=== PATIENT | female | born 1960 | race Caucasian/White ===

== ENCOUNTER → 2017-04-08 | Day surgery (SDC) | payer OTHER ==
[2017-04-02 09:50] VITALS: Ht 167.6 cm; Wt 97.7 kg
[~2017-04-08] VITALS: Ht 167.6 cm; Wt 97.7 kg
[~2017-04-08] MED LIST: 500ML BSS 0.3ML EPI 1:1000PF IRRIG ONE; ACETAMINOPHEN 325 MG TAB PO PRN; AMVISC PLUS 0.8ML SYRINGE INT OCU ONE; ASPCH81X PO; ATOR-24 PO; ATROPINE SULFATE 0.1 MG/ML 5ML SYR IV PRN; BSS FLUSH ONE; CALC-20 PO; CLB/200 PO; COLC0.6T54 PO; ENDOCOAT 0.85ML SYRINGE INT OCU ONE; EpHEDrine SULFATE INJ 50 MG/ML AMP IV PRN; EpINEphrine INJ 1MG/ML AMP 1 MG/ML AMP ONE; FERR1TAB13 PO; GABA-1220 PO; GLIP5TAB11 PO; GLIP5TAB3 PO; INSDGI SC; LACTATED RINGER'S 1000ML 500 ML IV SCH; LIDOCAINE 4% OP SOLN DROP CHARGE ONE; LIDOCAINE 4% OP SOLN DROP CHARGE OPL SCH; LIDOCAINE HCL 1% MPF 2 ML VIAL ONE; LISI40TA PO; METF-384 PO; MIDAZOLAM HCL 1 MG/ML 2ML VIAL ONE; MISCCAP80 PO; MIX: 4ML BSS 1ML EPI 1:1000 PF TOP ONE; MOXIFLOXACIN OPH SOLN PER DROP CHARGE ONE; MULTTAB58 PO; PANT40TA PO; POVIDONE-IODINE OP SOLN 30 ML BTL ONE; PROPARACAINE 0.5% OP SOLN PER DROP CHARGE OPL SCH; SITA100T3 PO; TOBRAMYCIN/DEXAMETHASONE OPH OINT PER APPLN CHARGE ONE; TRAM-10 PO; TRIA37.5 PO
--- NOTE | 2017-04-08 06:37 | History & Physical Bridge - [place] ---
H&P Re-Evaluation Bridge Note: I have examined the patient, reviewed the History & Physical and in the interval since the performance of the History & Physical I have noted the following changes of clinical significance: No changes noted
[2017-04-08] MEDS: PHENYLEPHRINE HCL 2.5% OP SOLN PER DROP CHARGE OPL SCH ×3 (06:44→06:54)
[2017-04-08] MEDS: TROPICAMIDE 1% OP SOLN PER DROP CHARGE OPL SCH ×3 (06:45→06:55)
[2017-04-08] MEDS: CYCLOPENTOLATE HCL 1% OP SOLN PER DROP CHARGE OPL SCH ×3 (06:46→06:56)
[2017-04-08] MEDS: MOXIFLOXACIN OPH SOLN PER DROP CHARGE OPL SCH ×3 (06:47→06:57)
--- NOTE | 2017-04-08 07:31 | [facility] Post Operative Brief Note ---
Immediate Operative Summary Operative Date Apr 08, 2017. Pre-Operative Diagnosis Left Eye Cataract Post-Operative Diagnosis Same Procedure(s) Performed Left Eye Cataract Phacoemulsification With Intraocular Lens Implant Surgeon Dr. Hansen Merchandise Planning Manager Surgeon(s) None Estimated Blood Loss None Findings Consistent with Post-Op Diagnosis Specimens None Anesthesia Type MAC Complication(s) none Disposition Accompanied Pt To Recovery: no Disposition:
--- NOTE | 2017-04-08 07:32 | [facility] Operative Report ---
Operative Report Date of Service Apr 08, 2017. Operative Report DATE OF OPERATION: 04/08/17 PREOPERATIVE DIAGNOSIS: Senile nuclear cataract, left eye POSTOPERATIVE DIAGNOSIS: Senile nuclear cataract, left eye PROCEDURE PERFORMED: Phacoemulsification with intraocular lens implantation, left eye SURGEON: Dr. Markie Hansen ANESTHESIA: Topical with 1% intracameral lidocaine and monitored anesthesia care COMPLICATIONS: None DESCRIPTION OF PROCEDURE: After positively identifying the patient both verbally and by wristband in the preoperative area, the left eye was marked as the operative eye. The patient was then brought back to the operating room by the anesthesia and nursing staff where they were given a drop of Lidocaine and betadine into the operative eye. They were then sterilely prepped and draped in the standard fashion typical for ophthalmic surgery. Steri-strips were placed along the upper eyelids to keep the lashes back, and a lid speculum was placed into the operative eye. At this point, a documented time out was performed with members of the ophthalmology, nursing, and anesthesia staffs all agreeing upon the correct patient, correct location for surgery, correct procedure, and correct type and power of intraocular lens to be implanted. The microscope was then swung into position. First, a paracentesis wound was made using a sideport blade. Then, in sequence, 1% preservative-free lidocaine followed by Endocoat viscoelastic was injected into the anterior chamber. Next , the main incision was made with a keratome blade in triplanar fashion. A sharp cystotome was introduced into the eye and used to create a tear in the anterior capsule, which was directed into a continuous curvilinear capsulorrhexis using Utrata forceps. Hydrodissection was then performed with BSS on a flat-tip cannula. Next, the phacoemulsification handpiece was introduced into the eye and used to remove the nucleus in a aulcyp-tzf-hayodms fashion. This was done without complication and then the irrigation-aspiration handpiece was introduced into the eye and used to remove all remaining cortical and epinuclear material. Amvisc was then injected into the anterior chamber as well as into the capsular bag and using the lens injector system, an MX60 22.0 D lens, serial number [id number], and expiration date 10/2019 was injected into the capsular bag and rotated into the correct position. Next, the irrigation- aspiration handpiece was used to remove all remaining Amvisc. BSS was used to hydrate the main wound, and then BSS was injected into the paracentesis site to reach physiologic pressure and then the main wound was checked and found to be watertight. The patient was given drops of Vigamox and Tobradex ointment into the operative eye, and then the surrounding area was cleaned and dried. A clear plastic shield was placed over the eye and the patient was then sat up and taken from the operating room by the anesthesia staff having tolerated the procedure well and suffering no complications. DISPOSITION: The patient was returned to the recovery room in stable condition. I attest to the content of the Intraoperative Record and any orders documented therein. Any exceptions are noted below.
--- NOTE | 2017-04-08 07:33 | Discharge Instructions-SurgCtr ---
Discharge Instructions Date of Service Apr 08, 2017. Visit Reason for Visit: Cataract Left Eye Discharge Discharge Diagnosis / Problem: left cataract Discharge Goals Goal(s): Decrease discomfort, Improve function Medications Stopped Medications Name(s): metformin stopped 2 days ago Activity Recommendations Activity Limitations: as noted below Anesthesia . Post Anesthesia Instructions: If you have had General Anesthesia or IV Sedation: * Do not drive today. * Resume driving when surgeon permits. * Do not make important decisions or sign legal documents today. * Call surgeon for: 1. Temperature elevations greater than 101 degrees F. 2. Uncontrollable pain. 3. Excessive bleeding. 4. Persistent nausea and vomiting. 5. Medication intolerance (nausea, vomiting or rash). * For nausea and vomiting use only clear liquids such as: tea, soda, bouillon until nausea subsides, then gradually increase diet as tolerated. * If you have any concerns or questions, call your surgeon's office. If physician is unavailable and it is an emergency, call 911 or go to the nearest emergency room. . Instructions / Follow-Up Instructions / Follow-Up ACTIVITY RECOMMENDATIONS: * Light activities. * You may walk outside, read, watch television. * You may notice redness on the white part of the eye and some blurry vision - this is normal. MEDICATIONS: Resume previous medications unless instructed otherwise by your surgeon. Start all eye drops at 9:30 am today: * Eye drops (today): Prednisone - one drop in operative eye every 2 hours while awake Ofloxacin - one drop in operative eye every 2 hours while awake Ketorolac - one drop in operative eye 4 times daily SPECIAL CARE INSTRUCTIONS: * Tape plastic shield over eye to sleep at night. Call your doctor at with any concerns or problems. FOLLOW UP VISIT: Follow-up with Dr Hansen at [place] office as scheduled. Diet Recommendations Home Diet: no limitations Procedures Procedures Performed: Left Eye Cataract Phacoemulsification With Intraocular Lens Implant Pending Studies Studies pending at discharge: no Medical Emergencies . Who to Call and When: Medical Emergencies: If at any time you feel your situation is an emergency, please call 911 immediately. . Non-Emergent Contact Non-Emergency issues call your: Surgeon . . "Provider Documentation" section prepared by Markie Hansen. .
[2017-04-08 07:46] VITALS: TEMP 36.2
[2017-04-08 08:00] VITALS: BP 170/89; PULSE 73; O2SAT 98
--- NOTE | 2017-04-08 08:01 | Anesthesia Progress Nt - [facility] ---
Anesthesia Post Op Note Date & Time Apr 08, 2017 at 08:01 Vital Signs Pain Intensity: 0 Vital Signs Past 12 Hours Date Time Temp Pulse Resp B/P (MAP) Pulse Ox O2 Delivery O2 Flow Rate FiO2 04/08/17 07:46 36.2 71 16 157/83 (107) 97 Room Air 04/08/17 06:36 36.8 80 16 98 Room Air Notes Mental Status: alert / awake / arousable, participated in evaluation Pt Amnestic to Procedure: Yes Nausea / Vomiting: adequately controlled Pain: adequately controlled Airway Patency, RR, SpO2: stable & adequate BP & HR: stable & adequate Hydration State: stable & adequate Anesthetic Complications: no major complications apparent
== END | disposition home or self-care (01) ==
LOC: X.SURG 06:13
PROVIDERS: ATTEND Ophthalmology
DX: H25.12 Age-related nuclear cataract, left eye (principal); I10 Essential (primary) hypertension; E10.9 Type 1 diabetes mellitus without complications; E78.00 Pure hypercholesterolemia, unspecified; N28.9 Disorder of kidney and ureter, unspecified; Z79.899 Other long term (current) drug therapy; Z79.4 Long term (current) use of insulin; Z88.5 Allergy status to narcotic agent

== ENCOUNTER → 2017-06-15 | Day surgery (SDC) | payer OTHER ==
[2017-06-09 08:19] VITALS: Ht 167.6 cm; Wt 97.7 kg
[~2017-06-15] VITALS: Ht 167.6 cm; Wt 97.7 kg
[~2017-06-15] MED LIST changes: -500ML BSS 0.3ML EPI 1:1000PF IRRIG ONE; +500ML BSSPLUS 0.5ML EPI1:1000 IRRIG ONE; -AMVISC PLUS 0.8ML SYRINGE INT OCU ONE; +ATROPINE SULFATE 1% OP SOLN 2 ML BTL ONE; +BUPIVACAINE HCL 0.75% 10 ML AMP/VIAL ONE; +CEFAZOLIN SOD 1 GM VIAL ONE; +DEXAMETHASONE SOD INJ 4 MG/ML VIAL ONE; -ENDOCOAT 0.85ML SYRINGE INT OCU ONE; +FENTANYL CITRATE INJ 50 MCG/1 ML 2 ML VIAL IV PRN; +FENTANYL CITRATE INJ 50 MCG/1 ML 2 ML VIAL ONE; +HYALURONIDASE HUMAN 150 UNIT/ML INJ ONE; +INDOCYANINE GREEN 25 MG/10 ML ONE; -LIDOCAINE 4% OP SOLN DROP CHARGE ONE; -LIDOCAINE 4% OP SOLN DROP CHARGE OPL SCH; -LIDOCAINE HCL 1% MPF 2 ML VIAL ONE; +LIDOCAINE HCL 2% 2 ML VIAL (20MG/ML) ONE; -MIX: 4ML BSS 1ML EPI 1:1000 PF TOP ONE; -MOXIFLOXACIN OPH SOLN PER DROP CHARGE ONE; +NEOMYCIN/POLYMYX/DEXAMETH OP OINT PER APP CHARGE ONE; +OCUCOAT 1 ML SOLN IO ONE; +ONDANSETRON INJ 2 MG/ML 2 ML VIAL IV PRN; +ONDANSETRON INJ 2 MG/ML 2 ML VIAL ONE; +POVIDONE-IODINE OP SOLN (SURGERY CNTR CHARGING ONLY) ONE; -POVIDONE-IODINE OP SOLN 30 ML BTL ONE; +PROPOFOL IV EMULSION 10 MG/ML 20 ML VIAL ONE; +TIMOLOL MALEATE 0.5% OP SOLN PER DROP CHARGE ONE; -TOBRAMYCIN/DEXAMETHASONE OPH OINT PER APPLN CHARGE ONE; +TRIAMCINOLONE ACETONIDE OPHTH 40 MG/ML VIAL STERILE ONE
[2017-06-15] MEDS: PHENYLEPHRINE HCL 2.5% OP SOLN PER DROP CHARGE OPL SCH ×2 (06:32→06:37)
[2017-06-15] MEDS: TROPICAMIDE 1% OP SOLN PER DROP CHARGE OPL SCH ×2 (06:33→06:38)
--- NOTE | 2017-06-15 06:59 | History & Physical Bridge - [place] ---
H&P Re-Evaluation Bridge Note: pt has diabetic retinopathy left eye and is having vitrectomy left eye. I have examined the patient, reviewed the History & Physical and in the interval since the performance of the History & Physical I have noted the following changes of clinical significance: No changes noted
--- NOTE | 2017-06-15 07:51 | [facility] Operative Report ---
Operative Report Date of Service June 15, 2017. Operative Report PREOPERATIVE DIAGNOSIS: Proliferative diabetic retinopathy with vitreous hemorrhage, left eye. POSTOPERATIVE DIAGNOSIS: same. PROCEDURE: 1. Pars plana vitrectomy, 23 gauge. 2. Membrane segmentation. 3. Endolaser. All to the left eye. CPT CODE: 42647 SURGEON: Jermain Jason D.O. COMPLICATIONS: None. ESTIMATED BLOOD LOSS: None. SPECIMENS: None. ANESTHESIA: Retrobulbar block and MAC INDICATIONS FOR PROCEDURE: Surgery is indicated to decrease risk of vision loss and potentially improve vision. CONSENT: The risks, benefits and alternatives were discussed with the patient including but not limited to decreased visual acuity, failure to achieve desired results, loss of the eye, infection, pain, glaucoma, lens changes, retinal tears, retinal detachment, the need for more procedures, drooping of the eyelid, blindness, and double vision. The patient is aware of risks and consents to the surgery. Consent is signed and on the chart. OPERATION AND FINDINGS: The patient was brought to the operating room where the patient was identified by name, date, and medical record number. The surgical site was confirmed with the informed written consent. The patient was sedated by the anesthesiology team after which a 50:50 mixture of 2% lidocaine and 0.75% bupivacaine with hyaluronidase was administered in a standard retrobulbar fashion. A total of 4 ml was administered without difficulty. The patient was then prepped and draped in the usual sterile manner for retinal surgery. A wire lid speculum was placed and an Javon 23-gauge trocar cannula system was employed. The inferior temporal trocar cannula was first placed in an angled fashion 3.75mm posterior to the surgical limbus and the infusion cannula was inserted into this cannula after which the intravitreal position was verified prior to turning the infusion on. Two more trocar cannulas were then inserted in an angled fashion, one in the superior temporal, and one in the superior nasal quadrant both 3.75mm posterior to the surgical limbus. A light pipe and vitrector were then introduced into the eye and the BIOM wide angle viewing system was brought into place. Posterior inspection revealed partially regressed proliferative diabetic retinopathy with neovascularization tags inferior to the temporal arcades. There was also noted well placed previous laser treatment. Standard core vitrectomy was performed and the vitreous was insured to be totally detached from the posterior pole with the aid of the vitrector. the areas of regressed neovascularization were segmented with the vitrector. The regressed fibrovascular membrane along the inferior arcade was segmented and cauterized. Endolaser was used to perform fill-in ty retinal photocoagulation. At this point scleral depression was performed for 360 degrees and no retinal tears or detachments were noted. The trocar cannulas were then removed and found to be water tight. The intraocular pressure was found to be within normal limits by palpation and subconjunctival injections of Kefzol and dexamethasone were administered inferiorly and superiorly. The wire lid speculum was removed. Maxitrol and timolol were applied to the surface of the eye. A light patch and shield were taped over the surface of the eye and the patient left the Operating Room in stable condition having tolerated the procedure well. DISPOSITION: The patient has an appointment the following morning in the Ophthalmology Clinic. The patient is to call immediately if there are any problems overnight. I attest to the content of the Intraoperative Record and any orders documented therein. Any exceptions are noted below.
--- NOTE | 2017-06-15 07:52 | Discharge Instructions-SurgCtr ---
Discharge Instructions Date of Service June 15, 2017. Visit Reason for Visit: Left Eye Diabetic Retinopathy Discharge Discharge Diagnosis / Problem: same Discharge Goals Goal(s): Improve function Medications Stopped Medications Name(s): Aspirin and Metformin stopped prior to procedure Activity Recommendations Activity Limitations: per Instructions/Follow-up section Anesthesia . Post Anesthesia Instructions: If you have had General Anesthesia or IV Sedation: * Do not drive today. * Resume driving when surgeon permits. * Do not make important decisions or sign legal documents today. * Call surgeon for: 1. Temperature elevations greater than 101 degrees F. 2. Uncontrollable pain. 3. Excessive bleeding. 4. Persistent nausea and vomiting. 5. Medication intolerance (nausea, vomiting or rash). * For nausea and vomiting use only clear liquids such as: tea, soda, bouillon until nausea subsides, then gradually increase diet as tolerated. * If you have any concerns or questions, call your surgeon's office. If physician is unavailable and it is an emergency, call 911 or go to the nearest emergency room. . Instructions / Follow-Up Instructions / Follow-Up * May take Tylenol if needed for discomfort. * Do NOT remove eye shield. * NO straining, heavy lifting (>15 pounds) or bending below waist. * Avoid getting water or soap directly into operative eye. * Do NOT rub eye. If you experience increasing eye pain not relieved by medication, please contact us immediately at [phone]. If you are unable to reach someone at the above number, call [phone] and ask to speak with the EYE DOCTOR RN CARE MANAGER. Inform them that you are a Dr. Jason patient who had recent surgery. Diet Recommendations Home Diet: resume previous diet Procedures Procedures Performed: Left Eye 23 Gauge Vitrectomy, Endolaser, Segmentation Pending Studies Studies pending at discharge: no Medical Emergencies . Who to Call and When: Medical Emergencies: If at any time you feel your situation is an emergency, please call 911 immediately. . Non-Emergent Contact Non-Emergency issues call your: Coagulating Operator . . "Provider Documentation" section prepared by Jermain Jason. .
[2017-06-15 08:02] VITALS: TEMP 37.3
--- NOTE | 2017-06-15 08:10 | Anesthesia Progress Nt - [facility] ---
Anesthesia Post Op Note Date & Time June 15, 2017 at 08:09 Vital Signs Pain Intensity: 2 Vital Signs Past 12 Hours Date Time Temp Pulse Resp B/P (MAP) Pulse Ox O2 Delivery O2 Flow Rate FiO2 06/15/17 08:02 37.3 79 16 174/79 (110) 97 Room Air 06/15/17 06:25 36.9 81 18 173/88 (116) 98 Room Air Notes Mental Status: alert / awake / arousable, participated in evaluation Pt Amnestic to Procedure: Yes Nausea / Vomiting: adequately controlled Pain: adequately controlled Airway Patency, RR, SpO2: stable & adequate BP & HR: stable & adequate Hydration State: stable & adequate Anesthetic Complications: no major complications apparent The patient was instructed to take her Norvasc when she gets home as she did not take it yet this morning. She understands and agrees.
[2017-06-15 08:18] VITALS: BP 141/67; PULSE 77; O2SAT 99
== END | disposition home or self-care (01) ==
LOC: X.SURG 06:12
PROVIDERS: ATTEND Ophthalmology
DX: E11.3513 Type 2 diabetes mellitus with proliferative diabetic retinopathy with macular edema, bilateral (principal); E11.40 Type 2 diabetes mellitus with diabetic neuropathy, unspecified; E78.5 Hyperlipidemia, unspecified; I12.9 Hypertensive chronic kidney disease with stage 1 through stage 4 chronic kidney disease, or unspecified chronic kidney disease; M06.4 Inflammatory polyarthropathy; Z79.899 Other long term (current) drug therapy; N18.3 Chronic kidney disease, stage 3 (moderate); E66.01 Morbid (severe) obesity due to excess calories; Z79.82 Long term (current) use of aspirin; Z79.4 Long term (current) use of insulin; E11.621 Type 2 diabetes mellitus with foot ulcer; Z88.5 Allergy status to narcotic agent; M19.90 Unspecified osteoarthritis, unspecified site

== ENCOUNTER 2023-02-27 13:13 | Observation (INO) ==
--- NOTE | 2023-02-27 14:01 | XRay Report ---
SINGLE VIEW CHEST CLINICAL HISTORY: Atypical chest pain FINDINGS: An AP, portable, upright chest radiograph is compared to study dated 02/28/2017. The cardiom ediastinal silhouette is unremarkable. The lungs and pleural spaces are clear. No pneumothorax is see n. The bony thorax is grossly intact. IMPRESSION: No active disease in the chest. ACT 112: Negative or not required by law. Electronically signed by: Ricky Zhang M.D. 02/27/2023 2:00 PM
[2023-02-27 14:06] LABS: Albumin Globulin Ratio 1.2 (0.9-2); Albumin Level 4.2 gm/dl (3.4-5.0); BUN Creatinine Ratio 31.4 (10-20); Bilirubin,Total 1.1 mg/dl (0.2-1.0); Calcium 9.6 mg/dl (8.6-10.3); Creatinine Clr Calc Pharmacy 50.5 ml/min; Est GFR (African American) 56.4 ml/min; Est GFR (Non-African American) 48.7 ml/min; Globulin 3.5 gm/dl (2.5-4.0); Potassium 3.9 mmol/L (3.5-5.1); Total Protein 7.7 gm/dl (6.0-8.3)
[2023-02-27 14:12] LABS: Troponin I High Sensitivity 9.1 pg/ml (0-14)
[2023-02-27 14:14] LABS: INR 1.1 (0.9-1.1); Partial Thromboplastin Time 27 Seconds (21-31); Prothrombin Time 12.1 Seconds (9.0-12.0)
[2023-02-27 14:33] LABS: Hematocrit (blood only) 46.3 % (37.0-47.0); Hemoglobin 15.2 g/dl (12.0-16.0); Mean Corpuscular Hemoglobin 30.6 pg (25.0-34.0); Mean Corpuscular Hgb Conc 32.8 g/dL (32.0-36.0); Mean Corpuscular Volume 93.2 fL (80.0-100.0); Mean Platelet Volume 11.4 fL (9.4-12.4); Platelet Count 120 K/uL (130-400); RDW Standard Deviation 47.5 fL (36.4-46.3); Red Blood Count 4.97 M/uL (4.20-5.40)
[2023-02-27 14:34] LABS: Basophils # (auto) 0.03 K/uL (0.00-0.20); Basophils % (auto) 0.5 %; Immature Granulocytes # (auto) 0.02 K/uL (0.01-0.20); Immature Granulocytes % (auto) 0.3 %; Lymphocytes # (auto) 1.66 K/uL (1.20-3.40); Lymphocytes % (auto) 25.2 %; Monocytes # (auto) 0.42 K/uL (0.11-0.59); Monocytes % (auto) 6.4 %; Neutrophils # (auto) 4.27 K/uL (1.40-6.50); Neutrophils % (auto) 64.6 %; Platelet Estimate Decreased (Normal)
--- NOTE | 2023-02-27 14:41 | Emergency Department Note ---
Impression & Plan Stable angina ED Provider Note NAME: ROBBIE JACKSON AGE: 62 SEX: F : 1960 ARRIVES VIA: Walk-In INFORMANT: Patient, ED PROVIDER(S): Delfin Salgado MD CHIEF COMPLAINT: Chest pain HPI: This is a 62-year-old female history of diabetes, diabetic neuropathy, multiple toe amputations, presenting for chest pain. Patient had intermittent chest pain for the past 2 months. She notes that the pain is usually worse with exertion. She notes that few days ago she was doing heavy lifting and began having chest pressure/pain. This radiated into her back. She notes that she had to sit down. She has shortness of breath and diaphoresis. Her friend who is with her today was there to that as well notes the patient was diaphoretic and looked unwell and pale in color. Patient had numerous episodes of this over the past 2 months. She also notes radiation of pain to her left arm mostly when this episode does occur. Occasion is in her right arm as well. No fever, chills, nausea or vomiting currently. ROS: See above HPI for pertinent positives & negatives. A total of 10 systems reviewed and were otherwise negative. PAST MEDICAL HISTORY: See Below PAST SURGICAL HISTORY: See Below FAMILY HISTORY: See Below SOCIAL HISTORY: See Below HOME MEDICATIONS: See Below ALLERGIES: See Below VITALS: See Below PHYSICAL EXAMINATION: General: resting comfortably in no acute distress Head: Normocephalic and atraumatic Eyes: Normal inspection, extraocular muscles intact Ear, nose, throat: Normal external exam Neck: Normal range of motion Respiratory: lungs clear to auscultation bilaterally Cardiovascular: Regular rate/rhythm, no murmur GI: soft, nontender, no guarding or rebound Extremities: nontender, moves all extremities Neuro: The patient awake and alert, appropriately conversive, no focal deficits, symmetric faces Skin: Warm, dry, and intact MEDICAL DECISION MAKING: This is a 62-year-old female history of diabetes, diabetic neuropathy,, toe amputations presenting for chest pain. Intermittent symptoms x 2 months. Concerning for stable for some stable angina. Sent in by PCP. -Chest Xray independently interpreted by me showing no pneumothorax, focal opacity, or pleural effusions. -ECG independently interpreted by me with normal sinus rhythm, rate of 76, left axis deviation, normal [place], right bundle branch block, normal QTc, no ST segment elevations consistent with STEMI criteria, bifascicular block, hyperacute T waves in lead I -Leukocytosis and anemia not seen, electrolytes within normal limits, INR 1 -Mild transaminitis unclear etiology -Troponin negative at this time -Patient numerous risk factors, moderate heart score, will require admission for stable angina at this time Differential diagnosis: Stable versus unstable angina, low concern for PE based on vital signs ER treatment provided: See below Diagnostics interpreted by me: ECG: As above Cardiac Monitoring: An order was placed for continuous cardiac monitoring. The monitor shows a rate of 74 with sinus rhythm. Laboratory studies: As stated above and show below. Imaging studies: See below. Past Med/Surg History Medical History (Updated 02/27/23 @ 17:18 by Delfin Salgado MD) Gout PSEUDO GOUT ARTHRITIS Osteoarthritis Diverticulosis Diabetes mellitus, type 2 Ludwigs angina DX 02/2017, 2/2 tooth abscess. Macular degeneration Peripheral neuropathy Right bundle branch block Hypertension Hyperlipidemia Surgical History History of repair of rotator cuff RT Fusion of spine LUMBAR FUSION H/O foot surgery LEFT FOOT BONE REMOVAL History of amputation LEFT FOOT BIG TOE AND SMALL TOE History of colonoscopy H/O total hysterectomy with bilateral salpingo-oophorectomy (BSO) History of cholecystectomy History of tooth extraction 02/2017>LIFE FLIGHTED TO [facility] History of cataract surgery LEFT Family History (Updated 02/27/23 @ 15:39 by Bety Lancaster PA-C) Mother Family history of diabetes mellitus Grandmother (Maternal) Family history of diabetes mellitus Father Heart disease Hypertension Stroke Social History Smoking Status: Never smoker Second Hand Exposure: No; Do You Dip or Chew Tobacco: No; Hx Alcohol Use: Yes Alcohol type: wine Hx Substance Use: No Preferred Language: Thai Communication Ability: Effective Lube Man Required: No Beliefs That Will Affect Care: None Current Living Situation: Alone Feels Safe at Home: Yes Assistive Devices: Special Shoe Allergies Allergies Allergy/AdvReac Type Severity Reaction Status Date / Time ampicillin Allergy Intermediate hives Verified 02/27/23 15:57 cephalexin [From Keflex] Allergy Intermediate nausea/vomiting Verified 02/27/23 15:57 and diarrhea morphine Allergy Intermediate ITCHY AND Verified 02/27/23 15:57 SEVERE NAUSEA/HIVES Home Meds Home Medications Medication Instructions Recorded Confirmed aspirin 81 mg tablet,delayed 81 mg PO DAILY 01/11/18 02/27/23 release atorvastatin 40 mg tablet (Lipitor) 40 mg PO PM 01/11/18 02/27/23 calcium carbonate 600 mg-vitamin 1 cap PO BID 01/11/18 02/27/23 D3 5 mcg (200 unit) capsule (Calcium 600 + D(3)) colchicine 0.6 mg capsule 0.6 mg PO QAM 01/11/18 01/20/18 pantoprazole 40 mg tablet,delayed 40 mg PO QAM 01/11/18 02/27/23 release (Protonix) allopurinol 100 mg tablet 200 mg PO DAILY 04/12/21 02/27/23 (Zyloprim) ascorbic acid (vitamin C) 500 mg 500 mg PO DAILY 04/12/21 04/12/21 capsule blood sugar diagnostic (FreeStyle 04/12/21 04/12/21 Lite Strips) carvedilol 3.125 mg tablet (Coreg) 3.125 mg PO BID 04/12/21 02/27/23 empagliflozin 10 mg tablet 10 mg PO DAILY 04/12/21 02/27/23 (Jardiance) furosemide 40 mg tablet (Lasix) 40 mg PO DAILY 04/12/21 02/27/23 insulin glargine 100 unit/mL 22 unit subcut DAILY 04/12/21 02/27/23 subcutaneous solution (Lantus U-100 Insulin) losartan 50 mg tablet 25 mg PO DAILY 04/12/21 02/27/23 multivitamin 1 tab PO DAILY 04/12/21 02/27/23 pen needle, diabetic 31 gauge x 04/12/21 04/12/21 5/16" (Lite Touch Insulin Pen [place]) pregabalin 50 mg capsule (Lyrica) 50 mg PO TID 04/12/21 02/27/23 tramadol 50 mg tablet 50 mg PO Q6H PRN Pain 04/12/21 02/27/23 dulaglutide 4.5 mg/0.5 mL 4.5 mg subcut 02/27/23 subcutaneous pen injector (Trulicity) Results & Data (ED) Vital Signs Vital Signs - 24 hr 02/27/23 13:16 02/27/23 13:32 02/27/23 13:32 Temperature 36.4 C L Temperature Source Skin Pulse Rate 79 Pulse Rate [Right Finger] Respiratory Rate 20 Respiratory Effort / Characteristics Non-Labored Spontaneous Respiratory Depth Normal Respiratory Pattern Regular Blood Pressure 146/79 H Blood Pressure [Right Arm] Blood Pressure Mean 101 Blood Pressure Mean [Right Arm] Blood Pressure Position [Right Arm] Pulse Oximetry 97 Oxygen Delivery Method Room Air Room Air Room Air Sepsis Recent Fever Within 48 Hours No Sepsis New/Unexplained Change in Mental Status N/A Sepsis Action Taken by Nursing No Action Required 02/27/23 13:41 02/27/23 13:58 02/27/23 15:17 Temperature Temperature Source Pulse Rate 73 Pulse Rate [Right Finger] 74 Respiratory Rate Respiratory Effort / Characteristics Respiratory Depth Respiratory Pattern Blood Pressure Blood Pressure [Right Arm] 157/75 H Blood Pressure Mean Blood Pressure Mean [Right Arm] 102 Blood Pressure Position [Right Arm] Semi-fowlers Pulse Oximetry 96 Oxygen Delivery Method Room Air Room Air Sepsis Recent Fever Within 48 Hours Sepsis New/Unexplained Change in Mental Status Sepsis Action Taken by Nursing Laboratory Data 02/27/23 13:34 02/27/23 13:34 Lab Results 02/27/23 Range/Units 13:34 WBC 6.60 (4.8-10.8) K/ul RBC 4.97 (4.20-5.40) M/uL Hgb 15.2 (12.0-16.0) g/dl Hct 46.3 (37.0-47.0) % MCV 93.2 (80.0-100.0) fL MCH 30.6 (25.0-34.0) pg MCHC 32.8 (32.0-36.0) g/dL RDW Std Deviation 47.5 H (36.4-46.3) fL RDW Coeff of [place] 14.0 (11.5-14.5) % Plt Count 120 L (130-400) K/uL MPV 11.4 (9.4-12.4) fL Immature Gran % (Auto) 0.3 % Neut % (Auto) 64.6 % Lymph % (Auto) 25.2 % [place] % (Auto) 6.4 % Eos % (Auto) 3.0 % Baso % (Auto) 0.5 % Neut # (Auto) 4.27 (1.40-6.50) K/uL Lymph # (Auto) 1.66 (1.20-3.40) K/uL [place] # (Auto) 0.42 (0.11-0.59) K/uL Eos # (Auto) 0.20 (0.00-0.50) K/uL Baso # (Auto) 0.03 (0.00-0.20) K/uL Immature Gran # (Auto) 0.02 (0.01-0.20) K/uL Platelet Estimate Decreased L (Normal) PT 12.1 H (9.0-12.0) Seconds INR 1.1 (0.9-1.1) APTT 27 (21-31) Seconds PTT Ratio 1.0 Sodium 143 (136-145) mmol/L Potassium 3.9 (3.5-5.1) mmol/L Chloride 107 (98-107) mmol/L Carbon Dioxide 26 (21-32) mmol/L Anion Gap 10 (3-11) BUN 37 H (6-23) mg/dl Creatinine 1.18 (0.6-1.2) mg/dl Est Cr Clr Drug Dosing 50.5 ml/min Est GFR ( Amer) 56.4 ml/min Est GFR (Non-Af Amer) 48.7 ml/min BUN/Creatinine Ratio 31.4 H (10-20) Glucose 89 (70-99(Fasting)) mg/dl Calcium 9.6 (8.6-10.3) mg/dl Total Bilirubin 1.1 H (0.2-1.0) mg/dl AST 54 H (13-39) U/L ALT 55 H (7-52) U/L Alkaline Phosphatase 156 H (34-104) U/L Troponin I High Sens 9.1 (0-14) pg/ml Total Protein 7.7 (6.0-8.3) gm/dl Albumin 4.2 (3.4-5.0) gm/dl Globulin 3.5 (2.5-4.0) gm/dl Albumin/Globulin Ratio 1.2 (0.9-2) Imaging Data Radiologist's Impression: Chest X-Ray 02/27/23 13:32 SINGLE VIEW CHEST CLINICAL HISTORY: Atypical chest pain FINDINGS: An AP, portable, upright chest radiograph is compared to study dated 02/28/2017. The cardiomediastinal silhouette is unremarkable. The lungs and pleural spaces are clear. No pneumothorax is seen. The bony thorax is grossly intact. IMPRESSION: No active disease in the chest. ACT 112: Negative or not required by law. Electronically signed by: Ricky Zhang M.D. 02/27/2023 2:00 PM Discharge Plan Visit Data Chief Complaint: Chest Pain Stated Complaint: CHEST PAIN/DIABETIC - REFERRED BY DR ED Provider: Delfin Salgado Discharge Problem: Stable angina Forms Stand Alone Forms: My [facility] [employer] Prescriptions Prescriptions: No Action Jardiance 10 mg tablet 10 mg PO DAILY allopurinol [Zyloprim] 100 mg tablet 200 mg PO DAILY losartan 50 mg tablet 25 mg PO DAILY furosemide [Lasix] 40 mg tablet 40 mg PO DAILY pregabalin [Lyrica] 50 mg capsule 50 mg PO TID Rx Instructions: Takes 2 in AM and 1 in evening ascorbic acid (vitamin C) 500 mg capsule 500 mg PO DAILY (DME) FreeStyle Lite Strips Strip See Rx Instructions .ROUTE Rx Instructions: Test 4x/day as directed carvedilol [Coreg] 3.125 mg tablet 3.125 mg PO BID Rx Instructions: must administer with a meal/food tramadol 50 mg tablet 50 mg PO Q6H PRN (Reason: Pain) multivitamin Tablet 1 tab PO DAILY (DME) pen needle, diabetic [Lite Touch Insulin Pen [place]] 31 gauge x 5/16" needle See Rx Instructions .ROUTE Rx Instructions: As directed atorvastatin [Lipitor] 40 mg Tablet 40 mg PO PM aspirin 81 mg Tablet,Delayed Release (Dr/Ec) 81 mg PO DAILY Calcium 600 + D(3) 600 mg calcium- 200 unit Capsule 1 cap PO BID colchicine 0.6 mg Capsule 0.6 mg PO QAM pantoprazole [Protonix] 40 mg Tablet,Delayed Release (Dr/Ec) 40 mg PO QAM Lantus U-100 Insulin 100 unit/mL solution 22 unit SUBCUT DAILY Rx Instructions: Inject 22 units in the AM and 28 units at HS Trulicity 4.5 mg/0.5 mL pen injector 4.5 mg SUBCUT Rx Instructions: Takes Sundays Referrals Referrals: Sharyn Ng DO [Primary Care Provider] -
--- NOTE | 2023-02-27 15:02 | History & Physical Report ---
Date of Service February 27, 2023 Assessment & Plan (1) Chest pain: (2) Hyperlipidemia: (3) Hypertension: (4) Right bundle branch block: Plan: - Admit to tele for observation for r/o - Trend cardiac biomarkers, initial set was negative - EKG reviewed as above - Check 2 D echo - If negative enzymes can consider a stress test tomorrow morning. - PT/OT consulted - Last echo in May 2021 showed moderate aortic valve sclerosis without stenosis, concentric LVH with narrowing of outflow tract out obstruction, her last stress test was in 2018 - Consult cardiology for possible stress test versus cardiac cath, has outpt appt scheduled on 03/13/23. - EKG from 11/04/22 reviewed showing NSR, RBBB, left anterior fascicular block, QTc of 486 compared to today's at outpatient office which shows similar findings - Check lipid panel and A1c with a.m. labs - Cont atorvastatin 40 mg, aspirin 81 mg daily, carvedilol 3.125 BID, losartan 25 mg daily - Hold lasix for now - NPO at midnight in case needs for procedure (5) Gout: Plan: -Patient reports that she is on allopurinol and reduced dose of colchicine daily as per her PCP, will continue (6) Diabetes mellitus, type 2: Plan: - ISS with accuchecks achs - Last A1C was 6.6 in August 2022, recheck with am labs - Hold jardience and trulicity - Home regimen lantus 22 U in AM and 28 U bedtime -- will reduce tonights dose in half since will make her NPO at midnight. Cont Lantus 22 QAM pending diet is ordered, otherwise this needs reduced in half as well - Hx of diabetic neuropathy s/p multiple toe amputations DVT ppx: teds, scds, Lines: 2 PIV FEN/GI: Low sodium, DM II Code: Full code Dispo: From home, likely to remain in the hospital x 1-2 days, pending cardiology evaluation History of Present Illness Chief Complaint: Chest pain Primary Care Provider: Sharyn Ng DO This is a 62 yo F with PMHx of DM II, neuropathy, HTN, HLD, IBS and hx of c. diff, osteoarthritis, who presents to the hospital with intermittent deep chest pain that has gone on for the last 2 months. She reports that it goes into her back between the shoulder blades, down the left arm occasionally into the right arm and there is associated dizziness and diaphoresis with her most recent bout of chest pain which was 2 days ago on Thursday. Currently she has a dull pain in center of her chest. Symptoms are worse since 4 weeks ago. She was initially experiencing this 2-3 times per week, but now its occurring more than once a day. It lasts about few minutes to up to 30 minutes. She also now experiences sweating with the chest pain. Pt has been getting over a cold recently which she thinks may have made it worse, and also reports she is under a lot of stress at home, living with her 15-year-old granddaughter. Her pain is worsened when she is stressed. Pt does not experience pain with rest. She admits that with 30 minutes of stretching bands and leg lifts her chest pain hurts more by the end of this exertional activity. Pt exercises twice daily regularly and notices decreased exercise tolerance as well. She has history of chronic back pain but states this feels different. She has an upcoming appointment with cardiology Mar 13, she hasn't ever seen shell trim operator before. Her friend Carmen, at bedside supports the history and states she notices decreased stamina and energy from this person. Allergies Allergy/AdvReac Type Severity Reaction Status Date / Time ampicillin Allergy Intermediate hives Verified 02/27/23 15:57 cephalexin [From Keflex] Allergy Intermediate nausea/vomiting Verified 02/27/23 15:57 and diarrhea morphine Allergy Intermediate ITCHY AND Verified 02/27/23 15:57 SEVERE NAUSEA/HIVES Home Medications Medication Instructions Recorded Confirmed Type aspirin 81 mg tablet,delayed 81 mg PO DAILY 01/11/18 02/27/23 History release atorvastatin 40 mg tablet (Lipitor) 40 mg PO PM 01/11/18 02/27/23 History calcium carbonate 600 mg-vitamin 1 cap PO BID 01/11/18 02/27/23 History D3 5 mcg (200 unit) capsule (Calcium 600 + D(3)) colchicine 0.6 mg capsule 0.6 mg PO QAM 01/11/18 01/20/18 History pantoprazole 40 mg tablet,delayed 40 mg PO QAM 01/11/18 02/27/23 History release (Protonix) allopurinol 100 mg tablet 200 mg PO DAILY 04/12/21 02/27/23 History (Zyloprim) ascorbic acid (vitamin C) 500 mg 500 mg PO DAILY 04/12/21 04/12/21 History capsule blood sugar diagnostic (FreeStyle 04/12/21 04/12/21 History Lite Strips) carvedilol 3.125 mg tablet (Coreg) 3.125 mg PO BID 04/12/21 02/27/23 History empagliflozin 10 mg tablet 10 mg PO DAILY 04/12/21 02/27/23 History (Jardiance) furosemide 40 mg tablet (Lasix) 40 mg PO DAILY 04/12/21 02/27/23 History insulin glargine 100 unit/mL 22 unit subcut DAILY 04/12/21 02/27/23 History subcutaneous solution (Lantus U-100 Insulin) losartan 50 mg tablet 25 mg PO DAILY 04/12/21 02/27/23 History multivitamin 1 tab PO DAILY 04/12/21 02/27/23 History pen needle, diabetic 31 gauge x 04/12/21 04/12/21 History 5/16" (Lite Touch Insulin Pen [place]) pregabalin 50 mg capsule (Lyrica) 50 mg PO TID 04/12/21 02/27/23 History tramadol 50 mg tablet 50 mg PO Q6H PRN Pain 04/12/21 02/27/23 History dulaglutide 4.5 mg/0.5 mL 4.5 mg subcut 02/27/23 History subcutaneous pen injector (Trulicity) Past Med/Surg History Medical History (Updated 02/27/23 @ 17:18 by Delfin Salgado MD) Gout PSEUDO GOUT ARTHRITIS Osteoarthritis Diverticulosis Diabetes mellitus, type 2 Ludwigs angina DX 02/2017, 2/2 tooth abscess. Macular degeneration Peripheral neuropathy Right bundle branch block Hypertension Hyperlipidemia Surgical History History of repair of rotator cuff RT Fusion of spine LUMBAR FUSION H/O foot surgery LEFT FOOT BONE REMOVAL History of amputation LEFT FOOT BIG TOE AND SMALL TOE History of colonoscopy H/O total hysterectomy with bilateral salpingo-oophorectomy (BSO) History of cholecystectomy History of tooth extraction 02/2017>LIFE FLIGHTED TO [facility] History of cataract surgery LEFT Family History (Updated 01/19/24 @ 15:39 by Bety Lancaster PA-C) Mother Family history of diabetes mellitus Grandmother (Maternal) Family history of diabetes mellitus Father Heart disease Hypertension Stroke Social History Smoking Status: Never smoker Second Hand Exposure: No; Do You Dip or Chew Tobacco: No; Hx Alcohol Use: Yes Alcohol type: wine Hx Substance Use: No Preferred Language: Liberian Communication Ability: Effective Clothing Manager Required: No Beliefs That Will Affect Care: None Current Living Situation: Alone Feels Safe at Home: Yes Assistive Devices: Special Shoe Review of Systems Review of Systems: Constitutional: No fever, sweats or chills Eyes: No diplopia, no worsening or blurred vision ENT: normal hearing, no trouble swallowing Respiratory: No cough, sputum, dyspnea at rest or on exertion Cardiovascular: As per HPI. +chest pain, no tightness or palpitations Abdomen: No pain, nausea, vomiting, diarrhea or constipation Musculoskeletal: No joint pain, calf pain, swelling Neurologic: No weakness, numbness/tingling, or balance problems Psychiatric: No anxiety or depression Skin: No rash or itch Physical Exam Physical Exam: Please refer to attending addendum. Results & Data Results & Data Vital Signs (Past 12 Hours) Vital Signs Temp Pulse Resp BP Pulse Ox O2 Del Method 02/27/23 13:58 73 02/27/23 13:41 Room Air 02/27/23 13:32 Room Air 02/27/23 13:32 Room Air 02/27/23 13:16 36.4 C L 79 20 146/79 H 97 Room Air Laboratory Results 02/27/23 13:34 WBC 6.60 RBC 4.97 Hgb 15.2 Hct 46.3 MCV 93.2 MCH 30.6 MCHC 32.8 RDW Std Deviation 47.5 H RDW Coeff of [place] 14.0 Plt Count 120 L MPV 11.4 Immature Gran % (Auto) 0.3 Neut % (Auto) 64.6 Lymph % (Auto) 25.2 [place] % (Auto) 6.4 Eos % (Auto) 3.0 Baso % (Auto) 0.5 Neut # (Auto) 4.27 Lymph # (Auto) 1.66 [place] # (Auto) 0.42 Eos # (Auto) 0.20 Baso # (Auto) 0.03 Immature Gran # (Auto) 0.02 Platelet Estimate Decreased L PT 12.1 H INR 1.1 APTT 27 PTT Ratio 1.0 Sodium 143 Potassium 3.9 Chloride 107 Carbon Dioxide 26 Anion Gap 10 BUN 37 H Creatinine 1.18 Est Cr Clr Drug Dosing 50.5 Est GFR ( Amer) 56.4 Est GFR (Non-Af Amer) 48.7 BUN/Creatinine Ratio 31.4 H Glucose 89 Calcium 9.6 Total Bilirubin 1.1 H AST 54 H ALT 55 H Alkaline Phosphatase 156 H Troponin I High Sens 9.1 Total Protein 7.7 Albumin 4.2 Globulin 3.5 Albumin/Globulin Ratio 1.2 Diagnostic Findings Chest X-Ray 02/27/23 13:32 SINGLE VIEW CHEST CLINICAL HISTORY: Atypical chest pain FINDINGS: An AP, portable, upright chest radiograph is compared to study dated 02/28/2017. The cardiomediastinal silhouette is unremarkable. The lungs and pleural spaces are clear. No pneumothorax is seen. The bony thorax is grossly intact. IMPRESSION: No active disease in the chest. ACT 112: Negative or not required by law. Electronically signed by: Ricky Zhang M.D. 02/27/2023 2:00 PM ECG Additional Comments: Reviewed. Code Status & VTE Plan Code Status Full code - discussed with pt at bedside. Supervising Physician Co-Signing Physician Notes 62 year old woman with PMHx of DM II, neuropathy, HTN, HLD, IBS and hx of c. diff, osteoarthritis who presents to the hospital with intermittent chest pain that has been worsening in the past 2 months. Reports pain is deep, referred to inbetween the scapula, usually associated with exertion or when upset at home, was initially about 2-3 times a week but more recently almost daily, used to last few mins to half an hour but now lasting longer. Most recent episode was also associated with dizziness, pain radiating to left arm and some shortness of breath. Pain improves/resolves with rest Patient is diabetic with neuropathy in the feet Denied alcohol or illicit drug use. Has not smoked since age 17 Reports family history of cardiac disease (Father from his 30s) and stroke On exam, General: Obese, not in distress Eyes: PERRL, conjunctivae normal, not pale, anicteric sclerae, EOM intact bilaterally ENMT: External ear and nose normal, oropharynx normal Respiratory: Normal respiratory effort, no respiratory distress, lungs clear to auscultation, no crackles and no wheezes Cardiovascular: RRR S1 S2 Gastrointestinal (Abdomen): Abdomen is not distended, soft, non-tender to palpation, no guarding, no palpable hepatosplenomegaly, normal bowel sounds Musculoskeletal: No pedal edema. (2 toes missing on left foot and 1 on right foot; surgically removed due to infection per pt) Neurologic: Alert and oriented x 3, No focal weakness, sensation grossly intact Psychiatric: Alert and oriented x 3, euthymic affect Angina EKG showed RBBB, LAFB, unchanged from prior ones on EPIC Trop is 9 XR chest did not show any acute abnormalities Reviewed old TTE from 05/2021 which showed normal EF 60-64%, mod increased LV wall thickness, septum is sigmoid with mild narrowing of outflow tract without obstruction, mod aortic valve sclerosis, mildly enlarged LA Will repeat TTE Trend trop Cards consult Will keep NPO PMN incase of further eval. Tele monitor Hold oral antidiabetics Insulin per protocol Continue other home meds. I spent a total of 50 minutes coordinating, documenting and providing care for this patient excluding time spent in performance of separately billed services
--- OUTSIDE RECORDS SUMMARY | 2023-02-27 15:40 | External Medical Summary | Summary of Care ---
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 Name Role Phone Marianela Queen DO Primary Care Provider [phone] Encounter Details Date Type Department Care Team (Late st Contact Info) Description 02/03/2023 Orders Only Outcomes Research Department [address] [place] [address] Caroline Brock CHRA MyCode Research Other*[id number] Allergies Active Allergy Reactions Criticality Noted Date Comments Ampicillin Hives 09/23/2018 Cephalexin Diarrhea,Nausea/vomiting 08/27/2020 Morphine Itching,Nausea/vomiting 12/15/2017 Prednisone 09/15/2022 Elevated BS, headache, did not tolerate documented as of this encounter (statuses as of 02/03/2023) Medications Medication Sig Dispensed Refills Start Date End Date Status ASPIRIN 81 MG PO CHEW Take by mouth . Taking every other day 0 12/23/2005 Active CALCIUM 600 + D 600-200 MG-UNIT PO TABS Take by mouth once . 0 12/23/2005 Active MULTIVITAMINS PO TABS 1 daily 0 Act lolita Probiotic Product (PROBIOTIC ACIDOPHILUS) Capsule Take 1 Cap by mouth three times a day with meals. 0 Active Blood Glucose Monitoring Suppl (D-CARE GLUCOMETER) w/Device KITIndications:Type 2 diabetes mellitus with diabetic peripheral angiopathy and gangrene, with long-term current use of insulin (HCC) Use as directed. 4x/day, Dx E11.9. 1 Kit 0 09/07/2018 Active Glucose Blood (FREESTYLE LITE TEST) STRPIndications:Type 2 diabetes mellitus with diabetic peripheral angiopathy and gangrene, with long-term current use of insulin (HCC) Test 4x/day as directed Dx E11.9 1 Box Dosing Unit 3 09/17/2018 Active Lancets MISCIndications:Type 2 diabetes mellitus with diabetic peripheral angiopathy and gangrene, with long-term current use of insulin (HCC) Use 4x/day as directed. Dx E11.9 100 Each 11 09/17/2018 Active Ascorbic Acid (VITAMIN C) 500 MG CAPS Take by mouth 2 times a day. 0 Active Empagliflozin 25 MG Oral Tablet (Jardiance) Take 1 Tablet by mouth in the morning. 90 Tablet 3 03/07/2022 Active Cinnamon 500 MG Oral Capsule Take 1 Capsule by mouth in the morning. 0 Active Green Tea 150 MG Oral Capsule Take by mouth. 0 Active Allopurinol 100 MG Oral Tablet (Zyloprim)Indications :Gouty arthritis Take 2 Tablets by mouth in the morning. 180 Tablet 2 06/17/2022 Active Loratadine 10 MG Oral Capsule Take 1 Capsule by mouth in the morning. 0 Active Furosemide 40 MG Oral Tablet (Lasix)Indications:El evated brain natriuretic peptide (BNP) level,Acute on chronic congestive heart failure, unspecified heart failure type (HCC) TAKE 1 TABLET IN THE MORNING 90 Tablet 2 07/25/2022 Active Trulicity 4.5 MG/0.5ML Subcutaneous Solution Pen-injector (Dulaglutide) Inject 4.5 mg under the skin once a week. 6 mL 3 08/05/2022 Active BD Pen Needle Short U/F 31G X 8 MM (Insulin Pen Needle)Indications:Ty pe 2 diabetes mellitus with foot ulcer, unspecified whether alf insulin use (HCC) Use to inject lantus twice daily as directed. Dx: E11.9 100 Each 5 08/27/2022 Active Atorvastatin Calcium 40 MG Oral Tablet (Lipitor)Indications: Dyslipidemia, goal LDL below 70 Take 1 Tablet by mouth daily. 90 Tablet 3 09/04/2022 Active Pantoprazole Sodium 40 MG Oral Tablet Delayed Release (Protonix)Indications :GERD (gastroesophageal reflux disease) TAKE 1 TABLET IN THE MORNING 90 Tablet 1 10/30/2022 Active amLODIPine Besylate 5 MG Oral Tablet (Norvasc) Take 1 Tablet by mouth in the morning. 0 Active Pregabalin 50 MG Oral Capsule (Lyrica)Indications:D iabetic polyneuropathy associated with type 2 diabetes mellitus (HCC),Degeneration of lumbosacral intervertebral disc TAKE 1 CAPSULE BY MOUTH 3 TIMES DAILY 270 Capsule 0 12/22/2022 Active Carvedilol 3.125 MG Oral Tablet (Coreg)Indications:HT N, goal below 140/90,Chronic heart failure with preserved ejection fraction (HCC) Take 1 Tablet by mouth in the morning and 1 Tablet before bedtime. 180 Tablet 3 12/22/2022 Active Losartan Potassium 50 MG Oral Tablet (Cozaar)Indications:H TN, goal below 140/90 Take 0.5 Tablets by mouth in the morning. 45 Tablet 3 12/22/2022 Active traMADol HCl 50 MG Oral Tablet (Ultram)Indications:C alcium pyrophosphate crystal arthritis,Gouty arthritis,Degeneratio n of lumbosacral intervertebral disc Take 1 Tablet by mouth daily as needed for Pain, Severe. Can take 2 tabs at bedtime if needed. 30 Tablet 0 12/22/2022 Active Lantus SoloStar 100 UNIT/ML Subcutaneous Solution Pen-injector (Insulin Glargine Solostar)Indications: Type 2 diabetes mellitus with hemoglobin A1c goal of less than 7.0% (HCC) INJECT 22 UNITS IN THE MORNING AND 28 UNITS AT BEDTIME (ADJUST IF DIRECTED) 45 mL 3 01/14/2023 Active Colchicine 0.6 MG Oral TabletIndications:Vishal cium pyrophosphate crystal arthritis TAKE 1 TABLET IN THE MORNING 90 Tablet 1 01/28/2023 Active documented as of this encounter (statuses as of 02/03/2023) Active Problems Problem Noted Date Diagnosed Date Hepatic cirrhosis 05/25/2021 C. difficile diarrhea 08/23/2020 Recurrent Clostridium difficile diarrhea 021 Chronic diastolic CHF (congestive heart failure) 08/21/2020 Stage 3b chronic kidney disease 12/19/2019 Overview: Per CKD protocol Chronic heart failure with preserved ejection fr action 04/21/2019 History of amputation of left great toe 07/31/19 19 History of amputation of lesser toe of left foot 07/30/2018 Diabetic infection of right foot 07/21/2018 Hyperkalemia 07/21/2018 Failure of outpatient treatment 07/21/2018 History of osteomyelitis 07/16/2017 H/O amputation of lesser toe, unspecified latera lity 06/09/2017 Overview: right Non-pressure chronic ulcer o f other part of left foot with fat layer exposed 10/17/2016 Morbid (severe) obesity due to excess calories 0 10/17/2016 Proliferative 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 Retinal edema 03/09/2009 Dyslipidemia, goal LDL below 70 01/18/2009 Overview: Per Lipid Taxonomy. Type 2 diabetes mellitus wit h hemoglobin A1c goal of less than 7.0% 11/23/2008 Overview: Modified per Diabetes protocol #14. ICD-10 update of inactive term Diabetic neuropathy 09/12/2008 Degeneration of lumbosacral intervertebral disc 08/07/2008 Abnormal mammogram 05/14/2008 Polycystic ovaries Right bundle branch block documented as of this encounter (statuses as of 02/03/2023) Resolved Problems Problem Noted Date Diagnosed Date Resolved Date Unspecified cirrhosis of liver 08/21/2020 08/21/2020 WINSTON (acute kidney injury) 08/21/2020 Chronic diastolic congestive heart failure 11/26/2018 04/26/2021 Gram-negative bacteremia 08/01/201801/2019 Osteomyelitis 07/21/2018 08/21/2020 Acute renal failure superimp osed on stage 3 chronic kidney disease 07/21/2018 08/10/2018 Severe sepsis with acute organ dysfunction 07/21/2018 08/10/2018 Lactic acidosis 07/16/2017 09/24/2018 Acute respiratory failure 03/05/2017 Respiratory failure without hypercapnia 03/02/2017 03/05/2017 Angina, Dylan 02/28/2017 10/20/2017 Knee effusion 04/12/2015 10/17/2016 Kidney disease, chronic, sta ge III (GFR 30-59 ml/min) 11/20/2014 12/22/2019 Overview: Per CKD protocol #1 MEDICATION USE AGREEMENT 03/29/201201/2019 Second degree burn of upper arm 06/05/2009 10/17/2016 Allergic rhinitis 06/05/2009 10/17/2016 HTN, GOAL BELOW 130/80 03/07/200910/01 Overview: Per HTN Taxonomy. HTN, goal below 140/90 09/12/200803/07 Overview: Per HTN Taxonomy. Sciatica 08/07/2008 06/09/2017 Mixed dyslipidemia 07/07/2008 Overview: Per Lipid Taxonomy. DM type 2, not at goal 05/14/200811/23 Overview: Modified per Diabetes protocol #14. Osteomyelitis of lower leg 05/14/2008 0 04/04/2010 Lumbago 10/17/2016 Overview: Sees Dr. Ibrahim Leg cramps, sleep related Overview: d/t low potassium documented as of this encounter (statuses as of 02/03/2023) Immunizations Name Administration Dates Next Due COVID-19 mRNA, LNP-s, No Pre serve, 2-Dose Series (Moderna) 04/07/2020,03/03/2020 COVID-19, mRNA, LNP-s, PF, B ooster, 100mcg/0.5mg (Moderna) 12/26/2020 Covid-19, Mrna, Lnp-s, Pf, B ivalent, 30 Mcg, IM, 12 yrs and above (Pfizer) 02/07/2022 H1N1 2009 Influenza, IM 02/28/2009 Hepatitis B, 20+ yrs 03/14/2014,10/22/2013,07/07 Pneumococcal Conjugate Vacci ne, 20-valent ([id number]) 05/28/2022 Pneumococcal Polysaccharide PPV23 (Pneumovax) 01/22/2015,06/23/2008 Seasonal Influenza Virus Vac cine, Unspecified Formulation 10/11/2015 Seasonal Influenza, PF, 6 M & above, IM , (FluLaval or Fluzone) 11/04/2022,10/16/2021,10/22/2020,11/22,10/21/2018,10/20/2017 Seasonal Influenza, Quadriva lent, No Preserve, IM 10/17/2016 Seasonal Influenza, Recombin ant, RIV3, No Preserve 11/14/2015 Seasonal Influenza, Split, I IV3, With Preserve, Inj 11/06/2014,10/22/2013,11/09/2012,12/18,12/10/2010,12/18/2009,10/31/2008 ,11/10/2007 TDAP (age 10 and older)(Boostrix) 04/08/2016 TDAP (age 11 and older)(Adacel) 02/23/2006 Varicella Zoster Vaccine (Adult) 10/05/2015 Zoster Vaccine Recombinant (Shingrix) 04/21/2019 ,12/14/2018 documented as of this encounter Social History Tobacco Use Types Packs/Day Years Used Date Smoking Tobacco: Never Smokeless Tobacco: Never Alcohol Use Standard Drinks/Week Comments Not Currently 0 (1 standard drink = 0.6 oz pur e alcohol) PHQ-2 Answer Date Recorded PHQ Adult Total Score 0 05/28/2022 Hunger Vital Sign Answer Date Recorded Within the past 12 months, y ou worried that your food would run out before you got the money to buy more. Never true 05/29/19 23 Within the past 12 months, t he food you bought just didn't last and you didn't have money to get more. Never true 05/28/2022 Sex and Gender Information Value Date Recorded Sex Assigned at Female 05/28/2022 9:15 AM EDT Gender Identity Female 05/28/2022 9:15 AM EDT Sexual Orientation Straight 05/28/2022 9: 15 AM EDT Job Start Date Occupation Industry Not on file Not on file Not on file documented as of this encounter Functional Status Functional Status Response Date of Assess ment Are you deaf or do you have serious difficulty h earing? No 08/21/2020 Are you blind or do you have serious difficulty seeing, even when wearing glasses? No 08/21/2020 Do you have serious difficul ty walking or climbing stairs? (5 years old or older) Yes 08/21/2020 Do you have difficulty dress ing or bathing? (5 years old or older) No 08/21/2020 Because of a physical, menta l, or emotional condition, do you have difficulty doing errands alone such as visiting a doctor s office or shopping? (15 years old or older) No 08/22/19 21 Cognitive Status Response Date of Assessm ent Because of a physical, menta l, or emotional condition, do you have serious difficulty concentrating, remembering, or making decisions? (5 years old or older) No 08/21/2020 documented as of this encounter Plan of Treatment Upcoming Encounters Date Type Department Care Team (Late st Contact Info) Description 03/10/2023 8:10 AM EST Laboratory Laboratory [facility] [place] [address] [place] [id number] [facility] [address] [place] [address] 03/12/2023 11:40 AM EST Office Visit Nephrology, [facility] [address] [place] [address] Shaun Matthews MD [address] [place] [address] 04/20/2023 7:45 AM EDT Office Visit Ophthalmology, [facility] [address] [place] [address] Jermain Jason, [address] [place] [address] 05/04/2023 8:30 AM EDT Office Visit Cardiology, [facility] [address] [place] [address] Anahi Rubio PA-C [address] [place] [address] 11/17/2023 8:00 AM EDT Office Visit Rheumatology [facility] [address] [place] [address] Yolette Dempsey CRNP [address] [place] [address] Scheduled Orders Name Type Priority Associated Diagnoses Orde r Schedule MYCODE SUBSEQUENT ADULT Lab Routine MyCode Research Other*[id number] Every 6 Months for 2 Occurrences starting 02/03/2023 until 02/23/2024 Scheduled Procedures Name Priority Associated Diagnoses Date/Ti me ESOPHAGOGASTRODUODENOSCOPY ( EGD), FLEXIBLE, TRANSORAL, DIAGNOSTIC Recall Cirrhosis of liver without ascites, unspecified hepatic cirrhosis type (HCC) COLONOSCOPY FLEXIBLE PROXIMAL DIAGNOSTIC Recall Screening for colon cancer Health Maintenance Due Date Last Done Comments Cologuard 2003 Fecal Occult Blood Test 2003 Sigmoidoscopy 2003 Diabetic Foot Exam 04/20/2020 04/21/2019, 0 04/20/2018, 06/09/2017, Additional history exists COVID-19 Vaccine ( season) 2022 02/07/2022, 12/26/2020, 04/07/2020, Additional history exists GFR 02/27/2023 08/27/2022, 02/09, 01/28/2022, Additional history exists HbA1c 02/27/2023 08/27/2022, 02/09, 01/28/2022, Additional history exists Diabetic Eye Exam 05/02/2023 05/01/2022, , 04/04/2021, Additional history exists Mammogram 05/27/2023 05/26/2022, 05/10, 04/22/2019, Additional history exists Depression Screening 05/29/2023 05/28/2022 Albumin/Creatinine Ratio 08/28/20232 023, 03/12/2022, 10/20/2017, Additional history exists CKD HGB USE SMARTSET 98510 08/28/202308/27, 08/27/2022, 02/27/2022, Additional history exists CKD PHOS USE SMARTSET 70870 08/28/202308/09, 04/04/2021, 04/05/2019, Additional history exists DTaP,Tdap,and Td Vaccines (3 - Td or Tdap) 04/08/2026 04/08/2016, 02/23/2006 Lipid Panel 08/28/2027 08/27/2022, 03/13, 05/01/2020, Additional history exists Colonoscopy 03/14/2029 03/14/2019, 04/2019, 09/07/2015, Additional history exists Colorectal Cancer Screening 03/14/2029 Hepatitis B Completed 03/14/2014, 10/10, 07/07/2013 Zoster Vaccines Completed 04/21/2019, 06/2018, 10/05/2015 Pneumococcal Vaccine: Pediatrics (0 to 5 Years) and At-Risk Patients (6 to 64 Years) Completed 05/28/2022, 01/22/2015, 06/23/2008 Influenza Vaccine (FLU shot) Completed , 10/16/2021, 10/22/2020, Additional history exists GARDASIL-HPV IMMUNIZATION SERIES Aged Out No longer eligible based on patient's age to complete this topic MENINGOCOCCAL (MENACTRA/MENVEO) Aged Out No longer eligible based on patient's age to complete this topic documented as of this encounter Medical Devices Implanted Type Area Secondary Teacher Device Identifier Shelf Expiration Date Model / Serial / Lot Screw Tenodesis 7x10mm - [id number] Implanted:Qty: 1 on 08/14/2017 by Amy Ann DPM at OR [facility] Left: Foot [employer] 03/11/2019 AR-1670BC / / [id number] Screw Tenodesis 6.25x15 - [id number] Implanted:Qty: 1 on 07/27/2018 by Amy Ann DPM at OR [facility] Right: Foot [employer] 03/11/2019 AR-1562BC / / [id number] documented as of this encounter Visit Diagnoses Diagnosis MyCode Research Other*[id number] documented in this encounter Advance Directives Documents on File Type Date Recorded Patient Payroll Auditor Expl anation Power of Mover Helper 07/23/2018 POWER OF A TTORNEY Advance Directives and Living Will 03/02/2017 ADVANCE DIRECTIVE / LIVING WILL Latest Code Status on File Code Status Date Activated Date Inactivated Comments Full Code 08/21/2020 1:47 PM 08/23/2020 6:06 PM This order reflects the patients wishes and were consensually agreed upon. Code Status History Code Status Date Activated Date Inactivated Comments Full Code 07/31/2018 2:22 PM 08/06/2018 8:19 PM This order reflects the patients wishes and were consensually agreed upon. Question Answer Comments Discussion of Advance Directives occurred with: Not Discussed Does the patient have a Living Will? No Does the patient have Health Care Power of Mover Helper? No Full Code 07/21/2018 5:01 PM 07/28/2018 7:06 PM This order reflects the patients wishes and were consensually agreed upon. Question Answer Comments Discussion of Advance Directives occurred with: Patient Full Code 07/16/2017 4:21 PM 07/21/2017 3:20 PM This o rder reflects the patients wishes and were consensually agreed upon. Question Answer Comments Discussion of Advance Directives occurred with: Patient Full Code 02/28/2017 9:39 PM 03/05/2017 8:40 PM This order reflects the patients wishes and were consensually agreed upon. Question Answer Comments Discussion of Advance Directives occurred with: Not Discussed Care Teams [employer] Retailer Sales Consultant Relationship Specialty Start Date End Date Marianela Queen DO [address] [place] [address] PCP - General Family Medicine 02/27/22 documented as of this encounter
--- OUTSIDE RECORDS SUMMARY | 2023-02-27 15:40 | External Medical Summary | Summary of Care ---
Author Name Unknown Organization [facility] Address [address] [place] [address] Phone [phone] Care Team Providers Care Rn Lpn Lvn Name Role Phone Marianela Queen DO Primary Care Provider [phone] Reason for Referral * Evaluate & Treat - Unlimited Visits (Within 30 days (routine)) - Authorized Specialty Diagnoses / Procedures Referred By Contac t Referred To Contact Pharmacist / Pharmacy Diagnoses Type 2 diabetes mellitus with hemoglobin A1c goal of less than 7.0% (HCC) Proliferative diabetic retinopathy of both eyes with macular edema associated with type 2 diabetes mellitus (HCC) DM type 2 with diabetic peripheral neuropathy (HCC) Type 2 diabetes mellitus with stage 3 chronic kidney disease, without long-term current use of insulin, unspecified whether stage 3a or 3b CKD (HCC) Dyslipidemia, goal LDL below 70 HTN, goal below 140/90 Elie Irby, DO [address] [place] [address] [place] [id number] Referral ID Status Reason Start Date Expiration Date Visits Requested Visits Authorized [id number] Authorized Specialty Services Required 02/20/2023 99 99 Question Answer Referral Priority Within 30 days (routine) Where should this appointment be scheduled? [facility] Referring Provider Role: Specialist Specialty: Endo Reason for Referral: DM Target A1c: < 7 Comments Pharmacist Medication Therapy Management: Minimum frequency patient should be seen in person for medication management: as appropriate per clinical condition and patient status By my signature, I understand that my patient Stormy Tran will have her medication therapy managed by the [facility] ([facility]) per established policies, procedures, and protocols. I also certify that this referral may serve as an initiation of service for the management of drug therapy in the above noted patient. [facility] providers will be responsible for scheduling patient visits, obtaining appropriate laboratory studies, and adjusting medication management therapy per patient's need, in addition to those roles spelled out in the clinic policy, procedures, and drug management protocols. I understand that the service provided by the [facility] Clinic is voluntary and have informed patient that they can refuse the service at their discretion. I am aware that the [facility] Clinic will provide me with a copy of the patient encounter via my [employer]. I authorize the [facility] Clinic to carry out these activities on my behalf. I consider this program to be a necessary part of the patient's medical care. Elie Irby DO Encounter Details Date Type Department Care Team (Late st Contact Info) Description 02/20/2023 10:00 AM EST Telemedicine Endocrinology [facility] Adal Martinez [address] [place] [address] [place] [address] Elie Irby DO [address] [place] [address] [place] [id number] Type 2 diabetes mellitus with hemoglobin A1c goal of less than 7.0% ([facility])*; Proliferative diabetic retinopathy of both eyes with macular edema associated with type 2 diabetes mellitus (HCC); DM type 2 with diabetic peripheral neuropathy ([facility]); Type 2 diabetes mellitus with stage 3 chronic kidney disease, without long-term current use of insulin, unspecified whether stage 3a or 3b CKD ([facility]); Dyslipidemia, goal LDL below 70; HTN, goal below 140/90 Allergies Active Allergy Reactions Criticality Noted Date Comments Ampicillin Hives 09/23/2018 Cephalexin Diarrhea,Nausea/vomiting 08/27/2020 Morphine Itching,Nausea/vomiting 12/15/2017 Prednisone 09/15/2022 Elevated BS, headache, did not tolerate documented as of this encounter (statuses as of 02/20/2023) Medications Medication Sig Dispensed Refills Start Date [...] diabetes mellitus with foot ulcer, unspecified whether terminal carman insulin use (HCC) Use to inject lantus [...] hemoglobin A1c goal of less than 7.0% ([facility]) INJECT 22 UNITS IN THE MORNING AND 28 UNITS AT BEDTIME (ADJUST IF DIRECTED) 45 mL 3 01/14/2023 Active Colchicine 0.6 MG Oral TabletIndications:Vishal cium pyrophosphate crystal arthritis TAKE 1 TABLET IN THE MORNING 90 Tablet 1 01/28/2023 Active documented as of this encounter (statuses as of 02/20/2023) Active Problems Problem Noted Date Diagnosed Date DM type 2 with diabetic peripheral neuropathy Type 2 diabetes mellitus wit h stage 3 chronic kidney disease, without long-term current use of insulin 02/20/2023 Hepatic cirrhosis 05/25/2021 C. difficile diarrhea 08/23/2020 [...] as of this encounter (statuses as of 02/20/2023) Resolved Problems Problem Noted Date Diagnosed Date [...] Taxonomy. Sciatica 08/07/2008 06/09/2017 Mixed dyslipidemia 07/07/2008 12//200 9 Overview: Per Lipid Taxonomy. DM type 2, not at goal 05/14/200811/23 Overview: Modified per Diabetes protocol #14. Osteomyelitis of lower leg 05/14/2008 0 04/04/2010 Lumbago 10/17/2016 Overview: Sees Dr. Ibrahim Leg cramps, sleep related Overview: d/t low potassium documented as of this encounter (statuses as of 02/20/2023) Immunizations Name Administration Dates Next Due COVID-19 mRNA, LNP-s, No Pre serve, 2-Dose Series (Moderna) 04/07/2020,03/03/2020 COVID-19, mRNA, LNP-s, PF, B ooster, 100mcg/0.5mg (Moderna) 12/26/2020 Covid-19, Mrna, Lnp-s, Pf, B ivalent, 30 Mcg, IM, 12 yrs and above (Pfizer) 02/07/2022 H1N1 2009 Influenza, IM 02/28/2009 Hepatitis B, 20+ yrs 03/14/2014,10/22/2013,07/07 Pneumococcal Conjugate Vacci ne, 20-valent ([id number]) 05/28/2022 Pneumococcal Polysaccharide PPV23 (Pneumovax) 01/22/2015,06/23/2008 Seasonal [...] No 08/21/2020 documented as of this encounter Progress Notes * Elie Irby, - 02/20/2023 10:49 AM EST Images from the original note were not included. Patient location: HOME. I was in a hospital or clinic location. After connecting through televideo,patient was verified with two unique identifiers. Patient (or authorized legal medical billing representative) was then informed that this was a Telemedicine visit and being conducted confidentially over secure lines. Methods to assure confidentiality were taken. Patient acknowledged consent and understanding of pr ivacy and security of the Telemedicine visit. The patient agreed to participate. Ms. Tran is a pleasant 62 year old patient of Marianela Queen DO seen in follow up of DM History of Present Illness Diabetes mellitus type 2 was diagnosed > 20 years ago. She had GDM in 1986 but developed diabetes 10 years later. She started insulin in about 2014. She has microvascular complications of retinopathy, nephropathy, and neuropathy on lyrica. Sees , remote laser. Sees Dr. Matthews. Latest Reference Range & Units 04/03/15 07:08 10/20/17 08:57 03/12/22 14:56 08/27/22 10:48 Albumin / Creatinine Ratio, Urine <30 mg/g Creat 51 (H) 21 104 (H) Protein/ Creatinine Ratio, Urine <150 mg/g <143 Latest Reference Range & Units 01/28/22 08:52 02/27/22 09:31 08/27/22 10:46 BUN 6 - 20 mg/dL 36 (H) 38 (H) 31 (H) Creatinine 0.5 - 1.0 mg/dL 1.2 (H) 1.2 (H) 1.1 (H) Estimated Glomerular Filtration Rate >=60 mL/min 49 (L) 52 (L) 59 (L) She has macrovascular complications of hypertension, CKD3a, dyslipidemia, without coronary artery disease, peripheral vascular disease, or cerebrovascular disease. No tobacco Lipitor 40 mg / Cozaar 50 mg / Jardiance 25 mg Latest Reference Range & Units 05/01/20 07:44 04/04/21 11:07 08/27/22 10:46 Triglycerides <=174 mg/dL 196 (H) 155 102 Cholesterol <200 mg/dL 117 129 117 Non-HDL Cholesterol <=159 mg/dL 81 86 65 HDL Cholesterol >49 mg/dL 36 (L) 43 (L) 52 LDL Cholesterol <=129 mg/dL 45 Metformin stopped with CKD She is currently being treated with Michael 2 Trulicity 4.5 mg weekly Jardiance 25 mg daily Lantus 22 units am and 28 units pm CGM not linked 7 day average 148 14 day avearge 151 No lows, lowest around 101 Higher with holidays and with steroid exposures Lab Results Component Value Date/Time HEMOGLOBIN A1C 8.5 (H) 03/08/1996 11:30 AM HEMOGLOBIN A1C 8.2 (H) 11/23/1995 11:30 AM HEMOGLOBIN A1C - [facility] 6.6 (H) 08/27/2022 10:46 AM HEMOGLOBIN A1C - [facility] 8.4 (H) 02/27/2022 09:31 AM HEMOGLOBIN A1C - [facility] 8.2 (H) 01/28/2022 08:52 AM HEMOGLOBIN A1C - [facility] 10.2 (H) 04/14/2019 07:51 AM HEMOGLOBIN A1C - [facility] 7.6 (H) 10/21/2018 10:21 AM HEMOGLOBIN A1C - [facility] 7.2 (H) 07/22/2018 06:00 AM Lab Results Component Value Date/Time TSH - [facility] 1.35 08/27/2022 10:46 AM TSH - [facility] 1.22 02/27/2022 09:31 AM TSH - [facility] 1.19 10/21/2018 10:21 AM TSH - [facility] 0.71 04/03/2015 06:57 AM TSH - [facility] 0.58 03/11/2014 08:40 AM Patient Active Problem List Diagnosis Code Abnormal mammogram R92.8 Polycystic ovaries E28.2 Right bundle branch block I45.10 Degeneration of lumbosacral intervertebral disc M51.37 Diabetic neuropathy ([facility]) E11.40 Type 2 diabetes mellitus with hemoglobin A1c goal of less than 7.0% ([facility]) E11.9 Dyslipidemia, goal LDL below 70 E78.5 Retinal edema H35.81 HTN, goal below 140/90 I10 Encounter for long-term (current) use of high-risk medication Z79.899 Proliferative diabetic retinopathy ([facility]) E11.3599 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 with type 2 diabetes mellitus ([facility]) E11.3513 Non-pressure chronic ulcer of other part of left foot with fat layer exposed ([facility]) L97.522 Morbid (severe) obesity due to excess calories ([facility]) E66.01 H/O amputation of lesser toe, unspecified laterality ([facility]) Z89.429 History of osteomyelitis Z87.39 Diabetic infection of right foot E11.628, L08.9 Hyperkalemia E87.5 Failure of outpatient treatment Z78.9 History of amputation of left great toe ([facility]) Z89.412 History of amputation of lesser toe of left foot ([facility]) Z89.422 Chronic heart failure with preserved ejection fraction ([facility]) I50.32 Stage 3b chronic kidney disease ([facility]) N18.32 Chronic diastolic CHF (congestive heart failure) ([facility]) I50.32 Recurrent Clostridium difficile diarrhea A04.71 C. difficile diarrhea A04.72 Hepatic cirrhosis (HCC) K74.60 Review of patient's allergies indicates: Allergen Reactions Ampicillin Hives Keflex [Cephalexin] Diarrhea and Nausea/vomiting Morphine Itching and Nausea/vomiting Prednisone Elevated BS, headache, did not tolerate Medications reviewed Physical Exam There were no vitals filed for this visit. telemed BP Readings from Last 3 Encounters: 11/04/22 122/76 09/08/22 119/70 08/27/22 108/60 Wt Readings from Last 3 Encounters: 11/21/22 87.1 kg (192 lb) 09/08/22 87.5 kg (193 lb) 08/27/22 88.2 kg (194 lb 8 oz) BMI Readings from Last 3 Encounters: 11/21/22 32.96 kg/m 09/08/22 33.13 kg/m 08/27/22 33.39 kg/m Ht Readings from Last 3 Encounters: 06/26/22 1.626 m (5' 4") 03/12/22 1.651 m (5' 5") 01/02/22 1.651 m (5' 5") General: Awake, alert, and oriented times three. Pleasant and cooperative in no acute distress. Eyes: Extra-ocular muscles intact. Anicteric no chemosis or proptosis Neuro: nonfocal Psych: normal mood affect and judgement Assessment and Plan ICD-10-CM 1. Type 2 diabetes mellitus with hemoglobin A1c goal of less than 7.0% ([facility]) E11.9 2. Proliferative diabetic retinopathy of both eyes with macular edema associated with type 2 diabetes mellitus ([facility]) E11.3513 3. DM type 2 with diabetic peripheral neuropathy ([facility]) E11.42 4. Type 2 diabetes mellitus with stage 3 chronic kidney disease, without long- term current use of insulin, unspecified whether stage 3a or 3b CKD ([facility]) E11.22 N18.30 5. Dyslipidemia, goal LDL below 70 E78.5 6. HTN, goal below 140/90 I10 Ms. Chelsea has longstanding DMT2 with triopathy. Control by report is good with real time glucose monitoring. She has no reported lows and only mild highs. Check A1c. I sent her a link to link her CGM with [employer] so we can review her tracings to better make adjustments. Refer to local [facility] pharmacy. No changes for now. Follow up Kem in 4 months, me 8 months. Wrap-Up Thank you for allowing me to participate in the care of your patient. Elie Irby DO Department of Endocrinology [place] Length of need : 12 months ICD10 code: E11.9 Most recent A1c: Lab Results Component Value Date/Time HEMOGLOBIN A1C 8.5 (H) 03/08/1996 11:30 AM HEMOGLOBIN A1C 8.2 (H) 11/23/1995 11:30 AM HEMOGLOBIN A1C - [facility] 6.6 (H) 08/27/2022 10:46 AM HEMOGLOBIN A1C - [facility] 8.4 (H) 02/27/2022 09:31 AM HEMOGLOBIN A1C - [facility] 8.2 (H) 01/28/2022 08:52 AM HEMOGLOBIN A1C - [facility] 10.2 (H) 04/14/2019 07:51 AM HEMOGLOBIN A1C - [facility] 7.6 (H) 10/21/2018 10:21 AM HEMOGLOBIN A1C - [facility] 7.2 (H) 07/22/2018 06:00 AM Rx: Michael 2 Trulicity 4.5 mg weekly Jardiance 25 mg daily Lantus 22 units am and 28 units pm Supplies: Michael 2 sensors every 10 days, transmitter every 90 days, glucometer, test strips, lancets, lancing device, control solution, meter battery Prescribed testing frequency: Continuous or 4 /day (400) Frequency Reason: Hypertension, Labile glucose documented in this encounter Plan of Treatment Upcoming Encounters Date Type Department Care Team (Late st Contact Info) Description 03/10/2023 8:10 AM EST Laboratory Laboratory State Mario Skaggs [address] [place] [phone] Guanako Muhammad [address] [place] [address] 03/12/2023 11:40 AM EST Office Visit Nephrology, Sandy Muhammad [address] [place] [address] Shaun Matthews MD [address] [facility] [place] [address] 04/14/2023 2:30 PM EST Telemedicine Endocrinology [facility], Adal Martinez [address] [place] [address] [place] [address] Kem Scott CRNP [address] [place] [address] 04/20/2023 7:45 AM EDT Office Visit Ophthalmology, [facility] [address] [place] [address] Jermain Jason, [address] [place] [address] 05/04/2023 8:30 AM EDT Office Visit Cardiology, [facility] [address] [place] [address] Anahi Rubio PA-C [address] [place] [address] 11/17/2023 8:00 AM EDT Office Visit Rheumatology [address] [place], [place] [address] Yolette Dempsey CRNP [address] [place] [address] [place] [id number] Scheduled Orders Name Type Priority Associated Diagnoses Orde r Schedule HEMOGLOBIN A1C Lab Routine Type 2 diabetes mellitus with hemoglobin A1c goal of less than 7.0% (HCC) Proliferative diabetic retinopathy of both eyes with macular edema associated with type 2 diabetes mellitus (HCC) DM type 2 with diabetic peripheral neuropathy (HCC) Type 2 diabetes mellitus with stage 3 chronic kidney disease, without long-term current use of insulin, unspecified whether stage 3a or 3b CKD (HCC) Dyslipidemia, goal LDL below 70 HTN, goal below 140/90 Expected: 02/20/2023 (Approximate), Expires: 05/22/2023 Scheduled Procedures Name Priority Associated Diagnoses Date/Ti me ESOPHAGOGASTRODUODENOSCOPY ( EGD), FLEXIBLE, TRANSORAL, DIAGNOSTIC Recall Cirrhosis of liver without ascites, unspecified hepatic cirrhosis type (HCC) COLONOSCOPY FLEXIBLE PROXIMAL DIAGNOSTIC Recall Screening for colon cancer Scheduled Referrals Name Type Priority Associated Diagnoses Orde r Schedule PHARMACIST MEDS THERAPY MGMT REFERRAL OP Referral Within 30 days (routine) Type 2 diabetes mellitus with hemoglobin A1c goal of less than 7.0% (HCC) Proliferative diabetic retinopathy of both eyes with macular edema associated with type 2 diabetes mellitus (HCC) DM type 2 with diabetic peripheral neuropathy (HCC) Type 2 diabetes mellitus with stage 3 chronic kidney disease, without long-term current use of insulin, unspecified whether stage 3a or 3b CKD (HCC) Dyslipidemia, goal LDL below 70 HTN, goal below 140/90 Ordered: 02/20/2023 Health Maintenance Due Date Last Done Comments [...] Additional history exists CKD HGB USE SMARTSET 65456 08/28/202308/27, 08/27/2022, 02/27/2022, Additional history exists CKD PHOS USE SMARTSET 15496 08/28/202308/09, 04/04/2021, 04/05/2019, Additional history exists DTaP,Tdap,and [...] this encounter Medical Devices Implanted Type Area Wicker Molded Candles Device Identifier Shelf Expiration Date Model / Serial / Lot Screw [employer]is 7x10mm - [id number] Implanted:Qty: 1 on 08/14/2017 by Amy Ann DPM at OR [facility] Left: Foot [employer] 03/11/2019 [id number] / / [id number] Screw Tenodesis 6.25x15 - [id number] Implanted:Qty: 1 on 07/27/2018 by Amy Ann DPM at OR [facility] Right: Foot [employer] 03/11/2019 [id number] / / [id number] documented as of this encounter Visit Diagnoses Diagnosis Type 2 diabetes mellitus with stage 3 chronic kidney disease, without long-term current use of insulin, unspecified whether stage 3a or 3b CKD (HCC) Proliferative diabetic retinopathy of both eyes with macular edema associated with type 2 diabetes mellitus (HCC) DM type 2 with diabetic peripheral neuropathy (HCC) Type II or unspecified type diabetes mellitus with neurological manifestations, not stated as uncontrolled Dyslipidemia, goal LDL below 70 Other and unspecified hyperlipidemia HTN, goal below 140/90 Unspecified essential hypertension documented in this encounter Advance Directives Documents on File Type Date Recorded Patient School Psychometrist Expl anation Power of Assistant Professor Of Philosophy 07/23/2018 POWER OF A TTORNEY Advance Directives [...] the patient have Health Care Power of Assistant Professor Of Philosophy? No Full Code 07/21/2018 5:01 PM 07/28/2018 [...] Directives occurred with: Not Discussed Care Teams Rn Lpn Lvn Relationship Specialty Start Date End Date Marianela Queen DO [address] [place] [address] PCP - General Family Medicine 02/27/22 documented as of this encounter
--- OUTSIDE RECORDS SUMMARY | 2023-02-27 15:40 | External Medical Summary | Summary of Care ---
Author Name Unknown Organization [facility] Address [address] [place] [address] Phone [phone] Care Team Providers Care Forder Operator Name Role Phone Marianela Queen DO Primary Care Provider [phone] Reason for Visit * Reason Onset Date Comments Referral 02/20/2023 Encounter Details Date Type Department Care Team (Late st Contact Info) Description 02/20/2023 [facility] [address] [place] [address] [place] [address] [place], Pharmacist Endocrinology [place] [address] [place] [address] [place] [address] Referral Allergies Active Allergy Reactions Criticality Noted Date Comments Ampicillin Hives 09/23/2018 Cephalexin Diarrhea,Nausea/vomiting 08/27/2020 Morphine Itching,Nausea/vomiting 12/15/2017 Prednisone 09/15/2022 Elevated BS, headache, did not tolerate documented as of this encounter (statuses as of 02/23/2023) Medications Medication Sig Dispensed Refills Start Date [...] diabetes mellitus with foot ulcer, unspecified whether halfway insulin use ([facility]) Use to inject lantus twice daily as [...] as of this encounter (statuses as of 02/23/2023) Active Problems Problem Noted Date Diagnosed Date [...] as of this encounter (statuses as of 02/23/2023) Resolved Problems Problem Noted Date Diagnosed Date [...] Taxonomy. Sciatica 08/07/2008 06/09/2017 Mixed dyslipidemia 07/07/2008 9 Overview: Per Lipid Taxonomy. DM type 2, not at goal 05/14/200811/23 Overview: Modified per Diabetes protocol #14. Osteomyelitis of lower leg 05/14/2008 0 04/04/2010 Lumbago 10/17/2016 Overview: Sees Dr. Ibrahim Leg cramps, sleep related Overview: d/t low potassium documented as of this encounter (statuses as of 02/23/2023) Immunizations Name Administration Dates Next Due COVID-19 mRNA, LNP-s, No Pre serve, 2-Dose Series (Moderna) 04/07/2020,03/03/2020 COVID-19, mRNA, LNP-s, PF, B ooster, 100mcg/0.5mg (Moderna) 12/26/2020 Covid-19, Mrna, Lnp-s, Pf, B ivalent, 30 Mcg, IM, 12 yrs and above (Pfizer) 02/07/2022 H1N1 2009 Influenza, IM 02/28/2009 Hepatitis B, 20+ yrs 03/14/2014,10/22/2013,07/07 Pneumococcal Conjugate Vacci ne, 20-valent ([id number]) 05/28/2022 Pneumococcal Polysaccharide PPV23 (Pneumovax) 01/22/2015,06/23/2008 Seasonal [...] No 08/21/2020 documented as of this encounter Miscellaneous Notes * Telephone Encounter - Rica Morgan RPh - 02/20/2023 3:27 PM EST Please send letter for initial appointment via video with pharmacist for medication adjustments. Thank you! * Telephone Encounter - Beth Snowedn CPhT - 02/20/2023 2:49 PM EST Comments Pharmacist Medication Therapy Management: Minimum frequency patient should be seen in person for medication management: as appropriate per clinical condition and patient status By my signature, I understand that my patient Stormy Tran will have her medication therapy managed by the [facility] Medication [facility] ([facility]) per established policies, procedures, and protocols. I also certify that this referral may serve as an initiation of service forthe management of drug therapy in the above noted patient. [facility] providers will be responsible for scheduling patient visits, obtaining appropriate laboratory studies, and adjusting medication management therapy per patient's need, in addition to those roles spelled out in the clinic policy, procedures, and drug management protocols. I understand that the service provided by the [facility] is voluntary and have informed patient that they can refuse the service at their discretion. I am aware that the [facility] Clinic will provide me with a copy of the patient encounter via my [employer] [facility]. I authorize the [facility] to carry out these activities on my behalf. I consider this program to be a necessary part of the patient's medical care. Elie Irby, DO Order Specific Questions Referral Priority Within 30 days (routine) Where should this appointment be scheduled? [facility] Referring Provider Role: Specialist Specialty: Endo Reason for Referral: DM Target A1c: < 7 documented in this encounter Plan of Treatment Upcoming Encounters Date Type Department Care Team (Late st Contact Info) Description 03/10/2023 8:10 AM EST Laboratory Laboratory [facility] [place] [address] [facility] [place] [phone] [facility] [address] [facility] [place] [address] 03/12/2023 11:40 AM EST Office Visit Nephrology, [facility] [address] [place] [address] Shaun Matthews MD [address] [facility] [place] [address] 03/13/2023 8:00 AM EST Office Visit Cardiology, [facility] [address] [place] [address] Anahi Rubio PA-C [address] [place] [address] 04/20/2023 7:45 AM EDT Office Visit Ophthalmology, [facility] [address] [place] [address] Jermain Jason DO [address] [place] [address] 06/24/2023 9:00 AM EDT Telemedicine Endocrinology [place], Adal Martinez [address] [place] [address] W[place], Pharmacist Endocrinology [place] [address] 11/17/2023 8:00 AM EDT Office Visit Rheumatology [facility] [address] [facility] [place] [address] Yolette Dempsey CRNP [address] [facility] [employer] [place] [address] Scheduled Procedures Name Priority Associated Diagnoses Date/Ti [...] Additional history exists CKD HGB USE SMARTSET 09634 08/28/202308/27, 08/27/2022, 02/27/2022, Additional history exists CKD PHOS USE SMARTSET 09609 08/28/202308/09, 04/04/2021, 04/05/2019, Additional history exists DTaP,Tdap,and [...] this encounter Medical Devices Implanted Type Area Correctional Officer Lieutenant Device Identifier Shelf Expiration Date Model / Serial / Lot Screw Tenodesis 7x10mm - [id number] Implanted:Qty: 1 on 08/14/2017 by Amy Ann DPM at OR [facility] Left: Foot [employer] 03/11/2019 AR-1670BC / / [id number] Screw Tenodesis 6.25x15 - [id number] Implanted:Qty: 1 on 07/27/2018 by Amy Ann DPM at OR [facility] Right: Foot [employer] 03/11/2019 AR-1562BC / / [id number] documented as of this encounter Advance Directives Documents on File Type Date Recorded Patient Surface Plate Finisher Expl anation Power of Unit Trust Manager 07/23/2018 POWER OF A TTORNEY Advance Directives [...] the patient have Health Care Power of Unit Trust Manager? No Full Code 07/21/2018 5:01 PM 07/28/2018 [...] Directives occurred with: Not Discussed Care Teams Forder Operator Relationship Specialty Start Date End Date Marianela Queen DO [address] [place] [address] PCP - General Family Medicine 02/27/22 documented as of this encounter
--- OUTSIDE RECORDS SUMMARY | 2023-02-27 15:40 | External Medical Summary | Summary of Care ---
Author Name Unknown Organization [facility] Address [address] [place] [address] Phone [phone] Care Team Providers Care Detective Youth Bureau Name Role Phone Marianela Queen DO Primary Care Provider [phone] Reason for Visit * Reason Onset Date Comments Appointment 02/20/2023 Patient has to g o and has been waiting for zoom Encounter Details Date Type Department Care Team (Late st Contact Info) Description 02/20/2023 Telephone Endocrinology [facility], Adal Martinez [address] [place] [address] [place] [address] Services, Scheduling [address] [place] [address] Appointment (Patient has to go and has bee... Allergies Active Allergy Reactions Criticality Noted Date [...] diabetes mellitus with foot ulcer, unspecified whether usp insulin use ([facility]) Use to inject lantus twice daily as [...] yrs 03/14/2014,10/22/2013,07/07 Pneumococcal Conjugate Vacci ne, 20-valent ([id number]) 05/28/2022 Pneumococcal Polysaccharide PPV23 (Pneumovax) 01/22/2015,06/23/2008 Seasonal [...] encounter Miscellaneous Notes * Telephone Encounter - Elie Irby DO - 02/20/2023 12:20 PM EST Yes I saw her See notes * Telephone Encounter - Anali Cano LPN - 02/20/2023 11:05 AM EST Visit was signed Dr. Irby Did you see this patient? * Telephone Encounter - Babita Fajardo OSA - 02/20/2023 10:43 AM EST Patient would like to speak to clinic and is asking if Dr. Irby is running behind she has been waiting for 40 minutes , please contact [phone] documented in this encounter Plan of Treatment Upcoming Encounters Date Type Department Care Team (Late st Contact Info) Description 03/10/2023 8:10 AM EST Laboratory Laboratory [facility] [place] [address] [place] [phone] [place], [facility] [address] [place] [address] 03/12/2023 11:40 AM EST Office Visit Nephrology, [facility] [address] [place] [address] Shaun Matthews MD [address] [place] [address] 04/14/2023 2:30 PM EST Telemedicine Endocrinology [facility], Adal Martinez [address] [place] [address] [place] [address] Kem Scott CRNP [address] [place] [address] [place] [address] 04/20/2023 7:45 AM EDT Office Visit Ophthalmology, [facility] [address] [facility] [place] [address] Jermain Jason, [address] [place] [address] 05/04/2023 8:30 AM EDT Office Visit Cardiology, [facility] [address] [place] [address] Anahi Rubio PA-C [address] [place] [address] 11/17/2023 8:00 AM EDT Office Visit Rheumatology [place] [address] [facility] [place] [address] Yolette Dempsey CRNP [facility] [place] [address] Scheduled Procedures Name Priority Associated Diagnoses Date/Ti [...] exists Depression Screening 05/29/2023 05/28/2022 Albumin/Creatinine Ratio 08/28/2023 023, 03/12/2022, 10/20/2017, Additional history exists CKD HGB USE SMARTSET 75648 08/28/202308/27, 08/27/2022, 02/27/2022, Additional history exists CKD PHOS USE SMARTSET 52105 08/28/202308/09, 04/04/2021, 04/05/2019, Additional history exists DTaP,Tdap,and [...] this encounter Medical Devices Implanted Type Area Green Ware Caster Device Identifier Shelf Expiration Date Model / Serial / Lot Screw Tenodesis 7x10mm - [id number] Implanted:Qty: 1 on 08/14/2017 by Amy Ann DPM at OR [facility] Left: Foot [employer] 03/11/2019 AR-1670BC / / [id number] Screw Tenodesis 6.25x15 - [id number] Implanted:Qty: 1 on 07/27/2018 by Amy Ann DPM at OR [facility] Right: Foot [employer] 03/11/2019 AR-1562BC / / [id number] documented as of this encounter Advance Directives Documents on File Type Date Recorded Patient Water Softener Servicer And Installer Expl anation Power of Cooking Instructor 07/23/2018 POWER OF A TTORNEY Advance Directives [...] the patient have Health Care Power of Cooking Instructor? No Full Code 07/21/2018 5:01 PM 07/28/2018 [...] Directives occurred with: Not Discussed Care Teams Detective Youth Bureau Relationship Specialty Start Date End Date Marianela Queen DO [address] [place] [address] PCP - General Family Medicine 02/27/22 documented as of this encounter
--- OUTSIDE RECORDS SUMMARY | 2023-02-27 15:40 | External Medical Summary | Summary of Care ---
Author Name Unknown Organization [facility] Address [address] [place] [address] Phone [phone] Care Team Providers Care Funeral Location Manager Name Role Phone Brennan Prescott DO Primary Care Provider [phone] Reason for Visit * Reason Comments eRx-Medication Refill Encounter Details Date Type Department Care Team (Late st Contact Info) Description 01/28/2023 Refill Family Practice [facility] [address] [place] [address] Brennan Prescott DO [address] [place] [address] Calcium pyrophosphate crystal arthritis Allergies Active Allergy Reactions Criticality Noted Date Comments Ampicillin Hives 09/23/2018 Cephalexin Diarrhea,Nausea/vomiting 08/27/2020 Morphine Itching,Nausea/vomiting 12/15/2017 Prednisone 09/15/2022 Elevated BS, headache, did not tolerate documented as of this encounter (statuses as of 01/28/2023) Medications Medication Sig Dispensed Refills Start Date End Date Status ASPIRIN 81 MG PO CHEW Take by mouth . Taking every other day 0 12/23/2005 Active CALCIUM 600 + D 600-200 MG-UNIT PO TABS Take by mouth once . 0 12/23/2005 Active MULTIVITAMINS PO TABS 1 daily 0 Active Probiotic Product (PROBIOTIC ACIDOPHILUS) Capsule Take 1 Cap by mouth three times a day with meals. 0 Active Blood Glucose Monitoring Suppl (D-CARE GLUCOMETER) w/Device KITIndications:Type 2 diabetes mellitus with diabetic peripheral angiopathy and gangrene, with long-term current use of insulin (HCC) Use as directed. 4x/day, Dx E11.9. 1 Kit 0 09/07/2018 Active Glucose Blood (FREESTYLE LITE TEST) STRPIndications:Typ e 2 diabetes mellitus with diabetic peripheral angiopathy and gangrene, with long-term current use of insulin (HCC) Test 4x/day as directed Dx E11.9 1 Box Dosing Unit 3 09/17/2018 Active Lancets MISCIndications:Typ e 2 diabetes mellitus with diabetic peripheral angiopathy [...] 0 Active Allopurinol 100 MG Oral Tablet (Zyloprim)Indicatio ns:Gouty arthritis Take 2 Tablets by mouth in the morning. 180 Tablet 2 06/17/2022 Active Loratadine 10 MG Oral Capsule Take 1 Capsule by mouth in the morning. 0 Active Furosemide 40 MG Oral Tablet (Lasix)Indications: Elevated brain natriuretic peptide (BNP) level,Acute on chronic congestive heart failure, unspecified heart failure type (HCC) TAKE 1 TABLET IN THE MORNING 90 Tablet 2 07/25/2022 Active Trulicity 4.5 MG/0.5ML Subcutaneous Solution Pen-injector (Dulaglutide) Inject 4.5 mg under the skin once a week. 6 mL 3 08/05/2022 Active BD Pen Needle Short U/F 31G X 8 MM (Insulin Pen Needle)Indications: Type 2 diabetes mellitus with foot ulcer, unspecified whether fdc insulin use ([facility]) Use to inject lantus twice daily as directed. Dx: E11.9 100 Each 5 08/27/2022 Active Atorvastatin Calcium 40 MG Oral Tablet (Lipitor)Indication s:Dyslipidemia, goal LDL below 70 Take 1 Tablet by mouth daily. 90 Tablet 3 09/04/2022 Active Pantoprazole Sodium 40 MG Oral Tablet Delayed Release (Protonix)Indicatio ns:GERD (gastroesophageal reflux disease) TAKE 1 TABLET IN THE MORNING 90 Tablet 1 10/30/2022 Active amLODIPine Besylate 5 MG Oral Tablet (Norvasc) Take 1 Tablet by mouth in the morning. 0 Active Pregabalin 50 MG Oral Capsule (Lyrica)Indications :Diabetic polyneuropathy associated with type 2 diabetes mellitus (HCC),Degeneration of lumbosacral intervertebral disc TAKE 1 CAPSULE BY MOUTH 3 TIMES DAILY 270 Capsule 0 12/22/2022 Active Carvedilol 3.125 MG Oral Tablet (Coreg)Indications: HTN, goal below 140/90,Chronic heart failure with preserved ejection fraction (HCC) Take 1 Tablet by mouth in the morning and 1 Tablet before bedtime. 180 Tablet 3 12/22/2022 Active Losartan Potassium 50 MG Oral Tablet (Cozaar)Indications :HTN, goal below 140/90 Take 0.5 Tablets by mouth in the morning. 45 Tablet 3 12/22/2022 Active traMADol HCl 50 MG Oral Tablet (Ultram)Indications :Calcium pyrophosphate crystal arthritis,Gouty arthritis,Degenerat ion of lumbosacral intervertebral disc Take 1 Tablet by mouth daily as needed for Pain, Severe. Can take 2 tabs at bedtime if needed. 30 Tablet 0 12/22/2022 Active Lantus SoloStar 100 UNIT/ML Subcutaneous Solution Pen-injector (Insulin Glargine Solostar)Indication s:Type 2 diabetes mellitus with hemoglobin A1c goal of less than 7.0% (HCC) INJECT 22 UNITS IN THE MORNING AND 28 UNITS AT BEDTIME (ADJUST IF DIRECTED) 45 mL 3 01/14/2023 Active Colchicine 0.6 MG Oral TabletIndications:C alcium pyrophosphate crystal arthritis TAKE 1 TABLET IN THE MORNING 90 Tablet 1 01/28/2023 Active Colchicine 0.6 MG Oral TabletIndications:C alcium pyrophosphate crystal arthritis Take 1 Tablet by mouth in the morning. 90 Tablet 1 05/28/2022 01/29/20 23 Discontinued documented as of this encounter (statuses as of 01/28/2023) Active Problems Problem Noted Date Diagnosed Date [...] as of this encounter (statuses as of 01/28/2023) Resolved Problems Problem Noted Date Diagnosed Date [...] as of this encounter (statuses as of 01/28/2023) Immunizations Name Administration Dates Next Due COVID-19 mRNA, LNP-s, No Pre serve, 2-Dose Series (Moderna) 04/07/2020,03/03/2020 COVID-19, mRNA, LNP-s, PF, B ooster, 100mcg/0.5mg (Moderna) 12/26/2020 Covid-19, Mrna, Lnp-s, Pf, B ivalent, 30 Mcg, IM, 12 yrs and above (Pfizer) 02/07/2022 H1N1 2009 Influenza, IM 02/28/2009 Hepatitis B, 20+ yrs 03/14/2014,10/22/2013,07/07 Pneumococcal Conjugate Vacci ne, 20-valent ([id number]) 05/28/2022 Pneumococcal Polysaccharide PPV23 (Pneumovax) 01/22/2015,06/23/2008 Seasonal [...] (15 years old or older) No 08/22/19 Cognitive Status Response Date of Assessm ent Because of a physical, menta l, or emotional condition, do you have serious difficulty concentrating, remembering, or making decisions? (5 years old or older) No 08/21/2020 documented as of this encounter Miscellaneous Notes * Telephone Encounter - Virgilio Zamudio [facility] - 01/28/2023 4:04 PM ESTSigned Prescriptions: Disp Refills Colchicine 0.6 MG Oral Tablet 90 Tab*1 Sig: TAKE 1 TABLET IN THEMORNINGAuthorizing Provider: BRENNAN PRESCOTT User: VIRGILIO JONES documented in this encounter Plan of Treatment Upcoming Encounters Date Type Department Care Team (Late st Contact Info) Description 03/10/2023 8:10 AM EST Laboratory Laboratory [facility] [place] [address] [place] [id number] Guanako Muhammad [address] [place], [place] [address] 03/12/2023 11:40 AM EST Office Visit Nephrology, [facility] [address] [place] [address] Shaun Matthews MD [address] [place] [address] 04/20/2023 7:45 AM EDT Office Visit Ophthalmology, [facility] [address] [facility] [place] [address] Jermain Jason DO [address] [place] [address] 05/04/2023 8:30 AM EDT Office Visit Cardiology, [facility] [address] [facility] [place] [address] Anahi Rubio, KINJAL [address] [place] [address] 11/17/2023 8:00 AM EDT Office Visit Rheumatology [facility] [address] [facility] [place], [place] [address] Yolette Dempsey CRNP [address] [facility] [place], [place] [address] Scheduled Procedures Name Priority Associated Diagnoses Date/Ti [...] Additional history exists CKD HGB USE SMARTSET 92062 08/28/202308/27, 08/27/2022, 02/27/2022, Additional history exists CKD PHOS USE SMARTSET 10349 08/28/202308/09, 04/04/2021, 04/05/2019, Additional history exists DTaP,Tdap,and [...] this encounter Medical Devices Implanted Type Area Blender Device Identifier Shelf Expiration Date Model / Serial / Lot Screw Tenodesis 7x10mm - [id number] Implanted:Qty: 1 on 08/14/2017 by Amy Ann DPM at OR [facility] Left: Foot [employer] 03/11/2019 AR-1670BC / / [id number] Screw Tenodesis 6.25x15 - [id number] Implanted:Qty: 1 on 07/27/2018 by Amy Ann DPM at OR [facility] Right: Foot [employer] 03/11/2019 AR-1562BC / / [id number] documented as of this encounter Visit Diagnoses Diagnosis 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 No Full Code 07/21/2018 5:01 PM 07/28/2018 [...] Directives occurred with: Not Discussed Care Teams Funeral Location Manager Relationship Specialty Start Date End Date Brennan Prescott DO [address] [place] [address] PCP - General Family Medicine 02/27/22 documented as of this encounter
--- OUTSIDE RECORDS SUMMARY | 2023-02-27 15:40 | External Medical Summary | Summary of Care ---
Author Name Unknown Organization [facility] Address [address] [place] [address] Phone [phone] Care Team Providers Care Advertising Supervisor Name Role Phone Marianela Queen DO Primary Care Provider [phone] Reason for Visit * Reason Onset Date Comments Referral 02/20/2023 Encounter Details Date Type Department Care Team (Late st Contact Info) Description 02/20/2023 [facility] [address] [place] [address] [place] [phone] [place], Pharmacist Endocrinology [place] [address] [place] [address] [place] [address] Referral Allergies Active Allergy Reactions Criticality Noted [...] diabetes mellitus with foot ulcer, unspecified whether fci insulin use ([facility]) Use to inject lantus twice daily [...] yrs 03/14/2014,10/22/2013,07/07 Pneumococcal Conjugate Vacci ne, 20-valent ([id number]) 05/28/2022 Pneumococcal Polysaccharide PPV23 (Pneumovax) 01/22/2015,06/23/2008 Seasonal [...] encounter Miscellaneous Notes * Telephone Encounter - Monserrat Huddleston OSA - 02/23/2023 3:27 PM EST Letter sent * Telephone Encounter - Rica Morgan RPh - 02/20/2023 3:27 PM EST Please send letter for initial appointment via video with pharmacist for medication adjustments. Thank you! * Telephone Encounter - Beth Snowden CPhT - 02/20/2023 2:49 PM EST Comments Pharmacist Medication Therapy Management: Minimum frequency patient should be seen in person for medication management: as appropriate per clinical condition and patient status By my signature, I understand that my patient Stormy Tran will have her medication therapy managed by the [facility] ([facility]) per established policies, procedures, and protocols. I also certify that this referral may serve as an initiation of service forthe management of drug therapy in the above noted patient. [facility] providers will be responsible for scheduling patient visits, obtaining appropriate laboratory studies, and adjusting medication management therapy per patient's need, in addition to those roles spelled out in the clinic policy, procedures, and drug management protocols. I understand that the service provided by the [facility] is voluntary and have informed patient that they can refuse the service at their discretion. I am aware that the [facility] will provide me with a copy of the patient encounter via my [employer]. I authorize the [facility] to carry out these activities on my [...] Description 03/10/2023 8:10 AM EST Laboratory Laboratory [facility] [place] [address] [facility] [address] [place] [id number] [facility] [address] [facility] [place] [address] 03/12/2023 11:40 AM EST Office Visit Nephrology, [facility] [address] [place] [address] Shaun Matthews MD [address] [place] [address] 03/13/2023 8:00 AM EST Office Visit Cardiology, [facility] [address] [place] [phone] Anahi Rubio PA-C [address] [place] [address] 04/20/2023 7:45 AM EDT Office Visit Ophthalmology, [facility] [address] [place] [address] Jermain Jason DO [address] [place] [address] 06/24/2023 9:00 AM EDT [facility] [address] [place] [address] [place] [address] [place], Pharmacist Endocrinology [place] [address] [place] [address] [place] [address] 11/17/2023 8:00 AM EDT Office Visit Rheumatology [facility] [address] [employer] [place] [address] Yolette Dempsey CRNP [address] [place] [address] Scheduled Procedures Name Priority Associated Diagnoses Date/Ti [...] Additional history exists CKD HGB USE SMARTSET 67921 08/28/202308/27, 08/27/2022, 02/27/2022, Additional history exists CKD PHOS USE SMARTSET 79466 08/28/202308/09, 04/04/2021, 04/05/2019, Additional history exists DTaP,Tdap,and [...] this encounter Medical Devices Implanted Type Area Licensed Sales Assistant Device Identifier Shelf Expiration Date Model / Serial / Lot Screw Tenodesis 7x10mm - [id number] Implanted:Qty: 1 on 08/14/2017 by Amy Ann DPM at OR [facility] [place] Left: Foot [employer] 03/11/2019 AR-1670BC / / [id number] Screw Tenodesis 6.25x15 - [id number] Implanted:Qty: 1 on 07/27/2018 by Amy Ann DPM at OR [facility] [place] Right: Foot [employer] 03/11/2019 [id number] / / [id number] documented as of this encounter Advance Directives Documents on File Type Date Recorded Patient Finance Attorney Expl anation Power of Cork Painter And Grader 07/23/2018 POWER OF A TTORNEY Advance Directives [...] the patient have Health Care Power of Cork Painter And Grader? No Full Code 07/21/2018 5:01 PM 07/28/2018 [...] Directives occurred with: Not Discussed Care Teams Advertising Supervisor Relationship Specialty Start Date End Date Marianela Queen DO [address] [place] [address] PCP - General Family Medicine 02/27/22 documented as of this encounter
--- OUTSIDE RECORDS SUMMARY | 2023-02-27 15:40 | External Medical Summary | Summary of Care ---
Author Name Unknown Organization [facility] Address [address] [place] [address] Phone [phone] Care Team Providers Care Rn Clinical Documentation Name Role Phone Marianela Queen DO Primary Care Provider [phone] Reason for Visit * Reason Comments Outpatient Testing Encounter Details Date Type Department Care Team (Late st Contact Info) Description 02/27/2023 9:40 AM EST Laboratory Laboratory, [facility] [address] [place] [address] [facility] [address] [place] [address] Stage 3a chronic kidney disease (HCC); Encounter for long-term (current) use of medications; Gouty arthritis; Type 2 diabetes mellitus with hemoglobin A1c goal of less than 7.0% (HCC); Proliferative diabetic retinopathy of both eyes with macular edema associated with type 2 diabetes mellitus (HCC); DM type 2 with diabetic peripheral neuropathy ([facility]); Type 2 diabetes mellitus with stage 3 chronic kidney disease, without long-term current use of insulin, unspecified whether stage 3a or 3b CKD (HCC); Dyslipidemia, goal LDL below 70; HTN, goal below 140/90 Allergies Active Allergy Reactions Criticality Noted Date Comments Ampicillin Hives 09/23/2018 Cephalexin Diarrhea,Nausea/vomiting 08/27/2020 Morphine Itching,Nausea/vomiting 12/15/2017 Prednisone 09/15/2022 Elevated BS, headache, did not tolerate documented as of this encounter (statuses as of 02/27/2023) Medications Medication Sig Dispensed Refills Start Date [...] gangrene, with long-term current use of insulin ([facility]) Use as directed. 4x/day, Dx E11.9. 1 Kit 0 09/07/2018 Active Glucose Blood (FREESTYLE LITE TEST) STRPIndications:Type 2 diabetes mellitus with diabetic peripheral angiopathy and gangrene, with long-term current use of insulin ([facility]) Test 4x/day as directed Dx E11.9 1 Box Dosing Unit 3 09/17/2018 Active Lancets MISCIndications:Type 2 diabetes mellitus with diabetic peripheral angiopathy and gangrene, with long-term current use of insulin ([facility]) Use 4x/day as directed. Dx E11.9 100 [...] diabetes mellitus with foot ulcer, unspecified whether retirement insulin use (HCC) Use to inject lantus [...] hemoglobin A1c goal of less than 7.0% ([facility]) INJECT 22 UNITS IN THE MORNING AND 28 UNITS AT BEDTIME (ADJUST IF DIRECTED) 45 mL 3 01/14/2023 Active Colchicine 0.6 MG Oral TabletIndications:Vishal cium pyrophosphate crystal arthritis TAKE 1 TABLET IN THE MORNING 90 Tablet 1 01/28/2023 Active documented as of this encounter (statuses as of 02/27/2023) Active Problems Problem Noted Date Diagnosed Date [...] as of this encounter (statuses as of 02/27/2023) Resolved Problems Problem Noted Date Diagnosed Date [...] Taxonomy. Sciatica 08/07/2008 06/09/2017 Mixed dyslipidemia 07/07/2008 12// 9 Overview: Per Lipid Taxonomy. DM type 2, not at goal 05/14/200811/23 Overview: Modified per Diabetes protocol #14. Osteomyelitis of lower leg 05/14/2008 0 04/04/2010 Lumbago 10/17/2016 Overview: Sees Dr. Ibrahim Leg cramps, sleep related Overview: d/t low potassium documented as of this encounter (statuses as of 02/27/2023) Immunizations Name Administration Dates Next Due COVID-19 mRNA, LNP-s, No Pre serve, 2-Dose Series (Moderna) 04/07/2020,03/03/2020 COVID-19, mRNA, LNP-s, PF, B ooster, 100mcg/0.5mg (Moderna) 12/26/2020 Covid-19, Mrna, Lnp-s, Pf, B ivalent, 30 Mcg, IM, 12 yrs and above (Pretty Simple) 02/07/2022 H1N1 2009 Influenza, IM 02/28/2009 Hepatitis B, 20+ yrs 03/14/2014,10/22/2013,07/07 Pneumococcal Conjugate Vacci ne, 20-valent ([id number]) 05/28/2022 Pneumococcal Polysaccharide PPV23 (Pneumovax) 01/22/2015,06/23/2008 Seasonal [...] Care Team (Late st Contact Info) Description 02/27/2023 10:40 AM EST Office Visit Family Practice [facility] [address] [place] [address] Ninfa Penny MD [address] [place] [address] Arrived 03/10/2023 8:10 AM EST Laboratory Laboratory [facility] [place] [address] [place] [phone] Guanako Muhammad [facility] [address] [facility] [place] [address] 03/12/2023 11:40 AM EST Office Visit Nephrology, [facility] [address] [facility] [place] [address] Shaun Matthews MD [address] [place] [address] 03/13/2023 8:00 AM EST Office Visit Cardiology, [facility] [address] [place] [address] Anahi Rubio PA-C [address] [place] [address] 04/20/2023 7:45 AM EDT Office Visit Ophthalmology, [facility] [address] [place] [address] Jermain Jason, [address] [place] [address] 06/24/2023 9:00 AM EDT Telemedicine Endocrinology [facility], [place] [address] [place] [address] [place] [address] [place], Pharmacist Endocrinology [address] [place] [address] 11/17/2023 8:00 AM EDT Office Visit Rheumatology [place] [phone] [facility] [place] [address] Yolette Dempsey CRNP [facility] [place] [address] Pending Results Name Type Priority Associated Diagnoses Date /Time RENAL FUNCTION PANEL Lab Routine Stage 3a chronic kidney disease (HCC) 02/27/2023 9:48 AM EST MAGNESIUM Lab Routine Encounter for long-term (current) use of medications 02/27/2023 9:48 AM EST VITAMIN B12 Lab Routine Encounter for long-term (current) use of medications 02/27/2023 9:48 AM EST URIC ACID Lab Routine Gouty arthritis 02/27/2023 9:48 AM EST HEMOGLOBIN A1C Lab Routine Type 2 diabetes [...] LDL below 70 HTN, goal below 140/90 02/27/2023 9:48 AM EST Scheduled Procedures Name Priority Associated Diagnoses Date/Ti [...] Additional history exists CKD HGB USE SMARTSET 82591 08/28/202308/273, 08/27/2022, 02/27/2022, Additional history exists CKD PHOS USE SMARTSET 70270 08/28/202308/09, 04/04/2021, 04/05/2019, Additional history exists DTaP,Tdap,and [...] this encounter Medical Devices Implanted Type Area Structural Steel Worker Helper Device Identifier Shelf Expiration Date Model / Serial / Lot Screw Tenodesis 7x10mm - [id number] Implanted:Qty: 1 on 08/14/2017 by Amy Ann DPM at OR [facility] Left: Foot [employer] 03/11/2019 AR-1670BC / / [id number] Screw Tenodesis 6.25x15 - [id number] Implanted:Qty: 1 on 07/27/2018 by Amy Ann DPM at OR [facility] Right: Foot [employer] 03/11/2019 AR-1562BC / / [id number] documented as of this encounter Visit Diagnoses Diagnosis Stage 3a chronic kidney disease (HCC) Encounter for long-term (current) use of medications Encounter for long-term (current) use of other medications Gouty arthritis Gouty arthropathy, unspecified Type 2 diabetes mellitus with stage 3 [...] Documents on File Type Date Recorded Patient Drum Drier Expl anation Power of Coffee Brewer 07/23/2018 POWER OF A TTORNEY Advance Directives [...] the patient have Health Care Power of Coffee Brewer? No Full Code 07/21/2018 5:01 PM 07/28/2018 [...] occurred with: Not Discussed Care Teams Rn Clinical Documentation Relationship Specialty Start Date End Date Marianela Queen DO [address] [place] [address] PCP - General Family Medicine 02/27/22 documented as of this encounter
[2023-02-27] MEDS ORDERED: GLUCAGON FOR INJ 1 MG VIAL SQ PRN (19:07)
[2023-02-27] MEDS ORDERED: CARBOHYDRATES FOR HYPOGLYCEMIA PO PRN (19:07)
[2023-02-27] MEDS ORDERED: ACETAMINOPHEN 325 MG TAB PO PRN (19:07)
[2023-02-27] MEDS ORDERED: DEXTROSE 50% 50 ML SYRINGE IV PRN (19:07)
[2023-02-27] MEDS ORDERED: GLUCOSE 10 TAB/TUBE PO PRN (19:07)
[2023-02-27] MEDS ORDERED: GLUCOSE 40% GEL 15 GM TUBE PO PRN (19:07)
[2023-02-27] MEDS: INSULIN ASPART PER UNIT CHARGE SC SCH ×2 (19:43→21:13)
[2023-02-27] MEDS ORDERED: ATORVASTATIN 40 MG TAB PO SCH (21:00)
[2023-02-27] MEDS ORDERED: LANTUS PER UNIT CHARGE SQ SCH (21:00)
[2023-02-27] MEDS ORDERED: PREGABALIN 50 MG CAP PO SCH (21:00)
[2023-02-27] MEDS: carvediloL 3.125 MG TAB PO SCH (21:23)
--- NOTE | 2023-02-27 23:00 | Electrocardiogram Report ---
Test Reason : Blood Pressure : / mmHG Vent. Rate : 076 BPM Atrial Rate : 076 BPM P-R Int : 158 ms QRS Dur : 124 ms QT Int : 428 ms P-R-T Axes : -13 -52 018 degrees QTc Int : 481 ms Normal sinus rhythm Right bundle branch block Left anterior fascicular block Bifascicular block Minimal voltage criteria for LVH, may be normal variant ( R in aVL ) Abnormal ECG When compared with ECG of 28-FEB-2017 13:51, No significant change Confirmed by Kam Tiwari ([id number]) on 02/27/2023 11:00:01 PM Referred By: Ninfa Penny Confirmed By:Kam Tiwari
[2023-02-28] MEDS ORDERED: Nursing to Pharmacy Communication SCH (00:45)
[2023-02-28 02:25] LABS: Calcium 9.3 mg/dl (8.6-10.3); Chol HDL Ratio 2.6 (0-5); Creatinine Clr Calc Pharmacy 56.4 ml/min; Est GFR (African American) 62.8 ml/min; Est GFR (Non-African American) 54.2 ml/min; Potassium 3.3 mmol/L (3.5-5.1)
[2023-02-28 02:36] LABS: Hematocrit (blood only) 39.8 % (37.0-47.0); Hemoglobin 13.4 g/dl (12.0-16.0); Mean Corpuscular Hemoglobin 30.9 pg (25.0-34.0); Mean Corpuscular Hgb Conc 33.7 g/dL (32.0-36.0); Mean Corpuscular Volume 91.7 fL (80.0-100.0); Mean Platelet Volume 10.8 fL (9.4-12.4); Platelet Count 99 K/uL (130-400); Platelet Estimate Decreased (Normal); RDW Coefficient of Variation 13.9 % (11.5-14.5); RDW Standard Deviation 46.5 fL (36.4-46.3); Red Blood Count 4.34 M/uL (4.20-5.40); White Blood Count 5.47 K/ul (4.8-10.8)
[2023-02-28] MEDS: INSULIN ASPART PER UNIT CHARGE SC SCH ×2 (05:34→12:00)
--- NOTE | 2023-02-28 07:14 | Electrocardiogram Report ---
Test Reason : Blood Pressure : / mmHG Vent. Rate : 072 BPM Atrial Rate : 072 BPM P-R Int : 166 ms QRS Dur : 128 ms QT Int : 458 ms P-R-T Axes : -15 -50 -02 degrees QTc Int : 501 ms Sinus rhythm with Premature atrial complexes Right bundle branch block Left anterior fascicular block Bifascicular block Moderate voltage criteria for LVH, may be normal variant Poor R wave progression, consider anterior CO vs. lead placement vs. LVH Abnormal ECG When compared with ECG of 27-FEB-2023 13:25, Premature atrial complexes are now Present Confirmed by Jermain Varner ([id number]) on 02/28/2023 7:14:12 AM Referred By: Ninfa Penny Confirmed By:Eddi Varner
[2023-02-28 07:22] LABS: Estimated Average Glucose 143 mg/dl; Hemoglobin A1C 6.6 % (4.5-5.6)
--- NOTE | 2023-02-28 08:09 | Hospitalist Progress Note ---
Date of Service February 28, 2023 Assessment & Plan (1) Chest pain: (2) Hyperlipidemia: (3) Hypertension: (4) Right bundle branch block: Plan: - Admit to tele for observation for r/o - Trend cardiac biomarkers, initial set was negative - EKG reviewed as above - Check 2 D echo - If negative enzymes can consider a stress test tomorrow morning. - PT/OT consulted - Last echo in May 2021 showed moderate aortic valve sclerosis without stenosis, concentric LVH with narrowing of outflow tract out obstruction, her last stress test was in 2018 - Consult cardiology for possible stress test versus cardiac cath, has outpt appt scheduled on 03/13/23. - EKG from 11/04/22 reviewed showing NSR, RBBB, left anterior fascicular block, QTc of 486 compared to today's at outpatient office which shows similar findings - Check lipid panel and A1c with a.m. labs - Cont atorvastatin 40 mg, aspirin 81 mg daily, carvedilol 3.125 BID, losartan 25 mg daily - Hold lasix for now - NPO at midnight in case needs for procedure (5) Gout: Plan: -Patient reports that she is on allopurinol and reduced dose of colchicine daily as per her PCP, will continue (6) Diabetes mellitus, type 2: Plan: - ISS with accuchecks achs - Last A1C was 6.6 in August 2022, recheck with am labs - Hold jardience and trulicity - Home regimen lantus 22 U in AM and 28 U bedtime -- will reduce tonights dose in half since will make her NPO at midnight. Cont Lantus 22 QAM pending diet is ordered, otherwise this needs reduced in half as well - Hx of diabetic neuropathy s/p multiple toe amputations DVT ppx: teds, scds, Lines: 2 PIV FEN/GI: Low sodium, DM II Code: Full code Dispo: From home, likely to remain in the hospital x 1-2 days, pending cardiology evaluation Admission and Anticipated Discharge Date Admission Date: February 27, 2023 Results & Data Results & Data Vital Signs (Past 12 Hours) Vital Signs Temp Pulse Pulse Resp BP Pulse Ox Pulse Ox 02/28/23 03:00 36.9 C 66 18 115/62 95 02/28/23 00:00 95 02/27/23 23:08 67 02/27/23 23:00 36.7 C 65 19 125/75 95 O2 Del Method O2 Del Method 02/28/23 03:00 Room Air 02/28/23 00:00 Room Air 02/27/23 23:08 02/27/23 23:00 Room Air
[2023-02-28] MEDS: carvediloL 3.125 MG TAB PO SCH (08:54)
[2023-02-28] MEDS ORDERED: MULTIVITAMIN TAB PO SCH (09:00)
[2023-02-28] MEDS ORDERED: FUROSEMIDE 40 MG TAB PO SCH (09:00)
[2023-02-28] MEDS ORDERED: PANTOprazole 40 MG TAB PO SCH (09:00)
[2023-02-28] MEDS ORDERED: PREGABALIN 100 MG CAP PO SCH (09:00)
[2023-02-28] MEDS ORDERED: COLCHICINE 0.6 MG TAB PO SCH (09:00)
[2023-02-28] MEDS ORDERED: ASPIRIN 81 MG ECTAB PO SCH (09:00)
[2023-02-28] MEDS ORDERED: LOSARTAN POTASSIUM 25 MG TAB PO SCH (09:00)
[2023-02-28] MEDS ORDERED: allopurinoL 100 MG TAB PO SCH (09:00)
[2023-02-28] MEDS ORDERED: LANTUS PER UNIT CHARGE SQ SCH ×2 (09:00)
[2023-02-28] MEDS: POTASSIUM CHLORIDE / WTR 10 MEQ/100 ML PLCT IV SCH ×4 (09:03→14:34)
--- NOTE | 2023-02-28 11:37 | Cardiology Consultation ---
Date of Consultation February 28, 2023 Assessment & Plan (1) Chest pain: she ruled out for ACS; ECG and telemetry unremarkable no longer having any chest pain echo today EF normal with no wall motion abnormalities (2) Hyperlipidemia: continue lipitor; last LDL is good (3) Hypertension: continue coreg, losartan and lasix; BP is good (4) Right bundle branch block: (5) Gout: (6) Diabetes mellitus, type 2: (7) LAFB (left anterior fascicular block): (8) Hypokalemia: repleted Plan 62y/o female with PMH DM,(HgA1c 6.6, HLD (LDL 37), HTN, Gout, obesity, chronic heart failure with preserved EF-NYHA Class II. Admitted with atypical chest pressure for months and hypokalemia she ruled out for ACS and is now chest pain free recommend out patient DSE no change in cardiac home medications if recurrent symptoms she is to return to the ER Ok for discharge home today she has a cardiology f/u on 03/13 I discussed my plan and recommendations with the hospitalist on the phone who agreed with my plan. History of Present Illness Reason for Consultation: chest pain Requesting Physician: Dr. Lancaster Attending Physician: Maggie Meneses MD History of Present Illness Pt seen at the bedside and examined at the bedside earlier this afternoon Pt has been having a chest pressure for about 2 months; tells me it was pretty constant. she contributed it more due to stressful stuff going on in her life. She denies any associated SOB, palpitations, lightheadedness or dizziness She finally saw her PCP about it and they recommended she go to the ER She was found to have low potassium and tells me since getting potassium she has not had any more chest pressures She has ambulated today and feels good Allergies Allergy/AdvReac Type Severity Reaction Status Date / Time ampicillin Allergy Intermediate hives Verified 02/27/23 15:57 cephalexin [From Keflex] Allergy Intermediate nausea/vomiting Verified 02/27/23 15:57 and diarrhea morphine Allergy Intermediate ITCHY AND Verified 02/27/23 15:57 SEVERE NAUSEA/HIVES Home Medications Medication Instructions Recorded Confirmed Type aspirin 81 mg tablet,delayed 81 mg PO DAILY 01/11/18 02/27/23 History release atorvastatin 40 mg tablet (Lipitor) 40 mg PO PM 01/11/18 02/27/23 History calcium carbonate 600 mg-vitamin 1 cap PO BID 01/11/18 02/27/23 History D3 5 mcg (200 unit) capsule (Calcium 600 + D(3)) colchicine 0.6 mg capsule 0.6 mg PO QAM 01/11/18 01/20/18 History pantoprazole 40 mg tablet,delayed 40 mg PO QAM 01/11/18 02/27/23 History release (Protonix) allopurinol 100 mg tablet 200 mg PO DAILY 04/12/21 02/27/23 History (Zyloprim) ascorbic acid (vitamin C) 500 mg 500 mg PO DAILY 04/12/21 04/12/21 History capsule blood sugar diagnostic (FreeStyle 04/12/21 04/12/21 History Lite Strips) carvedilol 3.125 mg tablet (Coreg) 3.125 mg PO BID 04/12/21 02/27/23 History empagliflozin 10 mg tablet 10 mg PO DAILY 04/12/21 02/27/23 History (Jardiance) furosemide 40 mg tablet (Lasix) 40 mg PO DAILY 04/12/21 02/27/23 History insulin glargine 100 unit/mL 22 unit subcut DAILY 04/12/21 02/27/23 History subcutaneous solution (Lantus U-100 Insulin) losartan 50 mg tablet 25 mg PO DAILY 04/12/21 02/27/23 History multivitamin 1 tab PO DAILY 04/12/21 02/27/23 History pen needle, diabetic 31 gauge x 04/12/21 04/12/21 History 5/16" (Lite Touch Insulin Pen [place]) pregabalin 50 mg capsule (Lyrica) 50 mg PO TID 04/12/21 02/27/23 History tramadol 50 mg tablet 50 mg PO Q6H PRN Pain 04/12/21 02/27/23 History dulaglutide 4.5 mg/0.5 mL 4.5 mg subcut 02/27/23 History subcutaneous pen injector (Trulicity) alprazolam 0.5 mg tablet (Xanax) 0.5 mg PO DAILY PRN anxiety #7 tabs 02/28/23 Rx Patient History Medical History Gout PSEUDO GOUT ARTHRITIS Osteoarthritis Diverticulosis Diabetes mellitus, type 2 Ludwigs angina DX 02/2017, 2/2 tooth abscess. Macular degeneration Peripheral neuropathy Right bundle branch block Hypertension Hyperlipidemia Surgical History History of repair of rotator cuff RT Fusion of spine LUMBAR FUSION H/O foot surgery LEFT FOOT BONE REMOVAL History of amputation LEFT FOOT BIG TOE AND SMALL TOE History of colonoscopy H/O total hysterectomy with bilateral salpingo-oophorectomy (BSO) History of cholecystectomy History of tooth extraction 02/2017>LIFE FLIGHTED TO [facility] History of cataract surgery LEFT Family History Mother Family history of diabetes mellitus Grandmother (Maternal) Family history of diabetes mellitus Father Heart disease Hypertension Stroke Social History Smoking Status: Never smoker Second Hand Exposure: No; Do You Dip or Chew Tobacco: No; Hx Alcohol Use: No Hx Substance Use: No Preferred Language: [place] Communication Ability: Effective Dragger Required: No Beliefs That Will Affect Care: None and Yazidi Current Living Situation: Family Current Living Situation Comment: Lives at home, [facility] lives with Feels Safe at Home: Yes Assistive Devices: None Review of Systems Review of Systems: All systems reviewed & are unremarkable except as noted in HPI & below Physical Exam Physical Exam: aaox3, NAD, sitting up in chair NC/AT, EOMI Supple No JVD Nrl S1/S2, No murmur CTA b/l no w/r/r soft nt/nd no LE edema b/l skin intact no focal deficits Results & Data Vital Signs (Past 12 Hours) Vital Signs Temp Pulse Resp BP Pulse Ox Pulse Ox O2 Del Method 02/28/23 08:25 36.7 C 71 18 148/64 H 96 Room Air 02/28/23 03:00 36.9 C 66 18 115/62 95 Room Air 02/28/23 00:00 95 O2 Del Method 02/28/23 08:25 02/28/23 03:00 02/28/23 00:00 Room Air Laboratory Results Cardiac Enzymes 02/27/23 02/27/23 02/28/23 Range/Units 13:34 19:14 01:34 AST 54 H (13-39) U/L Troponin I High Sens 9.1 10.0 9.3 (0-14) pg/ml Coagulation 02/27/23 Range/Units 13:34 PT 12.1 H (9.0-12.0) Seconds APTT 27 (21-31) Seconds Lipids 02/28/23 Range/Units 01:34 Triglycerides 120 (0-150) mg/dl Cholesterol 100 (0-200) mg/dl HDL Cholesterol 39 mg/dl Cholesterol/HDL Ratio 2.6 (0-5) CBC 02/27/23 02/28/23 Range/Units 13:34 01:34 WBC 6.60 5.47 (4.8-10.8) K/ul RBC 4.97 4.34 (4.20-5.40) M/uL Hgb 15.2 13.4 (12.0-16.0) g/dl Hct 46.3 39.8 (37.0-47.0) % Plt Count 120 L 99 L (130-400) K/uL Neut # (Auto) 4.27 (1.40-6.50) K/uL Lymph # (Auto) 1.66 (1.20-3.40) K/uL [place] # (Auto) 0.42 (0.11-0.59) K/uL Eos # (Auto) 0.20 (0.00-0.50) K/uL Baso # (Auto) 0.03 (0.00-0.20) K/uL Comprehensive Metabolic Panel 02/27/23 02/28/23 Range/Units 13:34 01:34 Sodium 143 143 (136-145) mmol/L Potassium 3.9 3.3 L (3.5-5.1) mmol/L Chloride 107 107 (98-107) mmol/L Carbon Dioxide 26 28 (21-32) mmol/L BUN 37 H 40 H (6-23) mg/dl Creatinine 1.18 1.08 (0.6-1.2) mg/dl Glucose 89 73 (70-99(Fasting)) mg/dl Calcium 9.6 9.3 (8.6-10.3) mg/dl AST 54 H (13-39) U/L ALT 55 H (7-52) U/L Alkaline Phosphatase 156 H (34-104) U/L Total Protein 7.7 (6.0-8.3) gm/dl Albumin 4.2 (3.4-5.0) gm/dl Intake and Output 02/27/23 02/28/23 02/28/23 22:59 06:59 14:59 Intake Total 240 / 240 100.000 / 100.000 Balance 240 / 240 100.000 / 100.000 Intake: IV 100.000 / 100.000 Potassium Chloride / Wtr 10 meq 100.000 / 100.000 In 100 ml @ 100 mls/hr IV Q1H [facility] Rx#:[id number] Oral 240 / 240 Other: Weight 84.1 kg Weight Measurement Method Standing Scale Diagnostic Findings CXR 02/27/23 Based on my independent interpretation No acute cardiopulmonary process Medications Administered Current Inpatient Medications Acetaminophen (Acetaminophen 325 Mg Tab) 650 mg PO Q4H PRN PRN Reason: Moderate Pain (Scale 4, 5, 6) Stop: 03/29/23 19:06 Allopurinol (Allopurinol 100 Mg Tab) 200 mg PO DAILY NICOLAS Stop: 03/30/23 08:59 Last Admin: 02/28/23 08:55 Dose: 200 mg Aspirin (Aspirin 81 Mg Ectab) 81 mg PO DAILY NICOLAS Stop: 03/30/23 08:59 Last Admin: 02/28/23 08:54 Dose: 81 mg Atorvastatin Calcium (Atorvastatin 40 Mg Tab) 40 mg PO PM NICOLAS Stop: 03/29/23 20:59 Last Admin: 02/27/23 21:23 Dose: 40 mg Carvedilol (Carvedilol 3.125 Mg Tab) 3.125 mg PO BID NICOLAS Stop: 03/29/23 20:59 Last Admin: 02/28/23 08:54 Dose: 3.125 mg Colchicine (Colchicine 0.6 Mg Tab) 0.6 mg PO QAM NICOLAS Stop: 03/30/23 08:59 Last Admin: 02/28/23 08:54 Dose: 0.6 mg Dextrose (Dextrose 50% 50 Ml Syringe) 25 - 50 ml IV UD PRN; Protocol PRN Reason: Hypoglycemia Protocol Stop: 03/29/23 19:06 Furosemide (Furosemide 40 Mg Tab) 40 mg PO DAILY NICOLAS Stop: 03/30/23 08:59 Last Admin: 02/28/23 08:55 Dose: 40 mg Glucagon (Glucagon For Inj 1 Mg Vial) 1 mg SQ UD PRN; Protocol PRN Reason: Hypoglycemia Protocol Stop: 03/29/23 19:06 Glucose (Glucose 10 Tab/Tube) 4 - 8 tab PO UD PRN; Protocol PRN Reason: Hypoglycemia Treatment Stop: 03/29/23 19:06 Glucose (Glucose 40% Gel 15 Gm Tube) 15 - 30 gm PO UD PRN; Protocol PRN Reason: Hypoglycemia Protocol Stop: 03/29/23 19:06 Potassium Chloride (K Nasir / Wtr) 10 meq in 100 mls @ 100 mls/hr IV Q1H NICOLAS Stop: 02/28/23 12:14 Last Admin: 02/28/23 10:37 Dose: 50 mls/hr Insulin Aspart (Insulin Aspart Per Unit Charge) 0 units SC Q6 NICOLAS Stop: 03/30/23 05:59 Last Admin: 02/28/23 05:34 Dose: Not Given Insulin Glargine (Lantus Per Unit Charge) 14 units SQ QPM NICOLAS Stop: 03/29/23 20:59 Last Admin: 02/27/23 21:22 Dose: 14 units Insulin Glargine (Lantus Per Unit Charge) 10 units SQ QAM NICOLAS Stop: 03/30/23 08:59 Last Admin: 02/28/23 08:53 Dose: 10 units Losartan Potassium (Losartan Potassium 25 Mg Tab) 25 mg PO DAILY NICOLAS Stop: 03/30/23 08:59 Last Admin: 02/28/23 08:55 Dose: 25 mg Miscellaneous (Carbohydrates For Hypoglycemia ) 15 - 30 gm PO UD PRN PRN Reason: Hypoglycemia Protocol Stop: 03/29/23 19:06 Multivitamins (Multivitamin Tab) 1 tab PO DAILY NICOLAS Stop: 03/30/23 08:59 Last Admin: 02/28/23 08:54 Dose: 1 tab Pantoprazole Sodium (Pantoprazole 40 Mg Tab) 40 mg PO QAM NICOLAS Stop: 03/30/23 08:59 Last Admin: 02/28/23 08:54 Dose: 40 mg Pregabalin (Pregabalin 100 Mg Cap) 100 mg PO QAM NICOLAS Stop: 03/30/23 08:59 Last Admin: 02/28/23 08:54 Dose: 100 mg Pregabalin (Pregabalin 50 Mg Cap) 50 mg PO QPM NICOLAS Stop: 03/29/23 20:59 Last Admin: 02/27/23 21:23 Dose: 50 mg ECG Additional Comments: ECGS: 02/28/23: SR 72bpm RBBB LAFB 02/27/2023: SR 76bpm RBBB LAFB
--- NOTE | 2023-02-28 15:19 | Communication Note ---
Date of Service: February 28, 2023 62-year-old with chest pain with history of diabetes, hypertension gout and hyperlipidemia apparently remained free from pain and no evidence of ACS. Was evaluated by cardiology and will have an outpatient stress test. Appropriately discharged by the attending physician. By CMS guidelines, a determination that the admission or continued stay is not medically necessary has been made by a member of the UR committee and a physician for this hospital stay, therefore a Code 44 will be completed and the Inpatient admission will be changed to outpatient. Dr Ana young Member UR Committee
[2023-02-28] MEDS ORDERED: INSULIN ASPART PER UNIT CHARGE SC SCH (16:30)
--- NOTE | 2023-02-28 17:49 | Discharge Summary ---
Discharge Summary Date of Service February 28, 2023 Notes For Next Care Provider Medication Changes From Visit Xanax 0.5 prn anxiety Admission HPI Per Admitting Provider This is a 62 yo F with PMHx of DM II, neuropathy, HTN, HLD, IBS and hx of c. diff, osteoarthritis, who presents to the hospital with intermittent deep chest pain that has gone on for the last 2 months. She reports that it goes into her back between the shoulder blades, down the left arm occasionally into the right arm and there is associated dizziness and diaphoresis with her most recent bout of chest pain which was 2 days ago on Thursday. Currently she has a dull pain in center of her chest. Symptoms are worse since 4 weeks ago. She was initially experiencing this 2-3 times per week, but now its occurring more than once a day. It lasts about few minutes to up to 30 minutes. She also now experiences sweating with the chest pain. Pt has been getting over a cold recently which she thinks may have made it worse, and also reports she is under a lot of stress at home, living with her 15-year-old granddaughter. Her pain is worsened when she is stressed. Pt does not experience pain with rest. She admits that with 30 minutes of stretching bands and leg lifts her chest pain hurts more by the end of this exertional activity. Pt exercises twice daily regularly and notices decreased exercise tolerance as well. She has history of chronic back pain but states this feels different. She has an upcoming appointment with cardiology Mar 13, she hasn't ever seen wellness nurse before. Her friend Carmen, at bedside supports the history and states she notices decreased stamina and energy from this person. Admission Exam Per Admitting Provider On exam, General: Obese, not in distress Eyes: PERRL, conjunctivae normal, not pale, anicteric sclerae, EOM intact bilaterally ENMT: External ear and nose normal, oropharynx normal Respiratory: Normal respiratory effort, no respiratory distress, lungs clear to auscultation, no crackles and no wheezes Cardiovascular: RRR S1 S2 Gastrointestinal (Abdomen): Abdomen is not distended, soft, non-tender to palpation, no guarding, no palpable hepatosplenomegaly, normal bowel sounds Musculoskeletal: No pedal edema. (2 toes missing on left foot and 1 on right foot; surgically removed due to infection per pt) Neurologic: Alert and oriented x 3, No focal weakness, sensation grossly intact Psychiatric: Alert and oriented x 3, euthymic affect Principal Dx & Hospital Course #1 = Principal Diagnosis (1) Chest pain: (2) Hyperlipidemia: (3) Hypertension: (4) Right bundle branch block: (5) Gout: (6) Diabetes mellitus, type 2: Plan Ms. Tran is a 62 year old woman with PMHx of DM II, neuropathy, HTN, HLD, IBS and hx of c. diff, osteoarthritis who presents to the hospital with intermittent chest pain that has been worsening in the past 2 months. She was admitted on 02/27 for ACS r/o. Troponin negative. ECG and tele without signs of acute ischemic changes. She notes that stress and anxiety are likely playing a contributing role. ECHO stable with no wall motion abnormalities noted. She was evaluated by cardiology who recommends outpatient stress echo and to continue home regimen at this time. #Atypical Chest pain: #Hyperlipidemia: #Hypertension: #Right bundle branch block: - EKG without acute changes, negative enzymes, ECHO 02/28 stable - Last echo in May 2021 showed moderate aortic valve sclerosis without stenosis, concentric LVH with narrowing of outflow tract out obstruction, her last stress test was in 2018 -Plan to keep OP cardiology appt on 03/13 -Order to be placed by Dr. Mendez for OP DSE - Cont atorvastatin 40 mg, aspirin 81 mg daily, carvedilol 3.125 BID, losartan 25 mg daily, 40 lasix # Gout: -Patient reports that she is on allopurinol and reduced dose of colchicine daily as per her PCP, will continue #Diabetes mellitus, type 2: Resume home regimen #Anxiety Reports stress and lots of interpersonal issues with home -Short course Ativan, follow up with PCP regarding [facility] management On day of discharge, patient was chest pain free, denied any acute concerns, ambulating without difficulty. Discharge Exam Constitutional WD/WN, vitals as above Respiratory normal respiratory effort, lungs clear to auscultation Cardiovascular RRR, no murmur, no edema Gastrointestinal (Abdomen) normal bowel sounds, soft, nontender, no hepatosplenomegaly Musculoskeletal no cyanosis or clubbing, extremities motor strength 5/5 Updated Medication List Medication Instructions Recorded Confirmed Type aspirin 81 mg tablet,delayed 81 mg PO DAILY 01/11/18 02/27/23 History release atorvastatin 40 mg tablet (Lipitor) 40 mg PO PM 01/11/18 02/27/23 History calcium carbonate 600 mg-vitamin 1 cap PO BID 01/11/18 02/27/23 History D3 5 mcg (200 unit) capsule (Calcium 600 + D(3)) colchicine 0.6 mg capsule 0.6 mg PO QAM 01/11/18 01/20/18 History pantoprazole 40 mg tablet,delayed 40 mg PO QAM 01/11/18 02/27/23 History release (Protonix) allopurinol 100 mg tablet 200 mg PO DAILY 04/12/21 02/27/23 History (Zyloprim) ascorbic acid (vitamin C) 500 mg 500 mg PO DAILY 04/12/21 04/12/21 History capsule blood sugar diagnostic (FreeStyle 04/12/21 04/12/21 History Lite Strips) carvedilol 3.125 mg tablet (Coreg) 3.125 mg PO BID 04/12/21 02/27/23 History empagliflozin 10 mg tablet 10 mg PO DAILY 04/12/21 02/27/23 History (Jardiance) furosemide 40 mg tablet (Lasix) 40 mg PO DAILY 04/12/21 02/27/23 History insulin glargine 100 unit/mL 22 unit subcut DAILY 04/12/21 02/27/23 History subcutaneous solution (Lantus U-100 Insulin) losartan 50 mg tablet 25 mg PO DAILY 04/12/21 02/27/23 History multivitamin 1 tab PO DAILY 04/12/21 02/27/23 History pen needle, diabetic 31 gauge x 04/12/21 04/12/21 History 5/16" (Lite Touch Insulin Pen [place]) pregabalin 50 mg capsule (Lyrica) 50 mg PO TID 04/12/21 02/27/23 History tramadol 50 mg tablet 50 mg PO Q6H PRN Pain 04/12/21 02/27/23 History dulaglutide 4.5 mg/0.5 mL 4.5 mg subcut 02/27/23 History subcutaneous pen injector (Trulicity) alprazolam 0.5 mg tablet (Xanax) 0.5 mg PO DAILY PRN anxiety #7 tabs 02/28/23 Rx Hospital Stay Data Consultations 02/27/23 15:00 ED Decision to Admit Stat 02/27/23 15:20 Consult Cardiology Routine Pending Results Patient Have Any Pending Studies at Discharge: No Discharge Instructions Given to Patient (Per Discharging Provider) You were admitted for concerns of chest pain. Your labs and EKG, as well as ECHO, did not reveal any acute signs of heart damage as of your admission; however, it is prudent to ensure you follow up with your Patient Transport Officer and obtain an outpatient stress ECHO. This will be ordered by the Patient Transport Officer who evaluated you, Dr. Castle. During your visit, you expressed notable amounts of anxiety and stress with home situations. A small supply of xanax was prescribed to help during acute events. Please do not take this medication prior to any operation of a motor vehicle, prior to work or high functions/cognitive activities. Total Time Total Time Spent Total Time Spent (In Minutes): 45
== END 2023-02-28 16:03 | disposition home or self-care (01) ==
LOC: ED 13:13 → INTOOBSV 15:14 → SUATTDRO 15:14 → 2E 15:14